=== PATIENT | female | born 1955 | race Caucasian/White ===

== ENCOUNTER 2017-08-26 12:37 | Day surgery (SDC) | payer OTHER, SELFPAY ==
[2017-08-26 13:43] VITALS: BP 132/74; PULSE 89; RESP 16; TEMP 36.5; O2SAT 95; BMI 33.7
--- NOTE | 2017-08-26 14:10 | RAD_ITS ---
PROCEDURE: Epidural block. DATE OF EXAMINATION: August 26, 2017. INDICATION: Female, 61 years old. Low back pain. FLUOROSCOPY TIME (if supplied): (0:15) minutes/seconds Intraoperative imaging was provided for L4-L5 epidural block. The spinal needle is seen along the posterior aspect of the L4-L5 disc. RAD/Spine 1 View Any Level IMPRESSION: Intraoperative imaging provided for L4-L5 epidural block. Electronically Signed: Gordon Syed MD at 15:53 EST Tel [phone], Service support ,
[2017-08-26] MEDS: Triamcinolone Acetonide 40 MG/ML Vial (15:15)
[2017-08-26 15:32] VITALS: BP 130/70; BP 132/74; PULSE 89; RESP 18; TEMP 36.6; O2SAT 96
--- NOTE | 2017-08-26 15:44 | PCM.DC ---
- Discharge Diagnoses Current Active Problems: Lumbar degenerative disc disease and b back pain Reason(s) for Visit for Discharge Instructions: Lumbar epidural steroid injection under fluroscopy You will use the following diet at home:: No restrictions Your food should be the consistency of: Regular Instructions: What Is Osteoarthritis? Allergies/Adverse Reactions: Allergies No Known Allergies Allergy (Verified 11/20/15 09:09) Medications to take at Discharge Aspirin [Adult Low Dose Aspirin EC] 81 mg PO DAILY 11/19/15 Atorvastatin Calcium [Lipitor] 40 mg PO QHS 11/19/15 Fenofibrate 40 mg PO DAILY 05/06/17 Methocarbamol [Robaxin] 500 mg PO QHS 05/06/17 L.acidoph,Paracasei, B.lactis [Probiotic] 1 each PO DAILY 08/26/17 Naproxen Sodium [Aleve] 220 mg PO Q12H PRN PRN 08/26/17 Primary Care Physician: Nura Herrera DO [Primary Care Provider] - Please Follow Up With: Jaxon Bettencourt MD
--- NOTE | 2017-08-26 15:47 | PCM.OP.BLANK ---
Problem List (1) Other intervertebral disc displacement, lumbar region Status: Acute (2) Intervertebral disc disorder with radiculopathy of lumbar region Status: Acute (3) Other intervertebral disc degeneration, lumbar region Status: Acute (4) Intervertebral disc stenosis of neural canal of lumbar region Status: Acute Operative Report Date of Procedure: 08/26/17 LUMBAR EPIDURAL STEROID INJECTION UNDER FLUOROSCOPY GUIDANCE at ACCESS AT L4-5 level Under sterile condition, patient in OR 1, placed on Prone position, pressure points were padded. After appropriate positioning , identified access points under fluoroscopy guidance to the L4-5 interspinous region with Oblique/ lateral and AP fluoroscopy guidance . Infiltration of skin with local anesthesia Lidocaine 1 % preservative free 5 ml at access point. Using 18 gauge toughy needle 3.5 inches in length to access to the posterior epidural space at the level indicated above. After confirmation of final placement , also using loss of resistance technique with PF Normal saline, negative aspiration of blood and CSF , injected 2 ml Contrast solution Iso 300, showed appropriate spread in the posterior epidural space, followed by injection of mixture of Kenalog 80 mg and PF normal saline and PF Lidocaine 0.25 % 5 ml total volume injected and showed spread in the posterior epidural space. Patient has tolerated the procedure well, intact neurological function after the procedure and discharged home in stable condition to follow up with plan at office visit as discussed in pre procedure visit, patient has expressed full understanding of the above .
== END 2017-08-26 15:34 | disposition home or self-care (01) ==
LOC: SDC 12:38 → ACINP 12:41 → AC 12:53
PROVIDERS: Family Provider Family Medicine; PCP Family Medicine; Visit Provider Anesthesiology
PROC: 3E0S3BZ Introduction of Anesthetic Agent into Epidural Space, Percutaneous Approach (ICD-10-PCS; CPT 62322; principal; 2017-08-26 14:05)
DX: M51.26 Other intervertebral disc displacement, lumbar region (principal); M51.16 Intervertebral disc disorders with radiculopathy, lumbar region; M51.36 Other intervertebral disc degeneration, lumbar region; M99.53 Intervertebral disc stenosis of neural canal of lumbar region; M50.320 Other cervical disc degeneration, mid-cervical region, unspecified level; M47.16 Other spondylosis with myelopathy, lumbar region; M48.061 Spinal stenosis, lumbar region without neurogenic claudication; Z87.891 Personal history of nicotine dependence; Z79.899 Other long term (current) drug therapy
CPT/HCPCS: 62323; 64483; 72020; J7120

== ENCOUNTER 2017-09-02 20:35 | Emergency (ER) | payer OTHER, SELFPAY ==
[2017-09-02 20:36] VITALS: TEMP 36.5; BMI 35.7
[2017-09-02 20:40] VITALS: BP 143/94; PULSE 94; RESP 16; O2SAT 99
--- NOTE | 2017-09-02 20:59 | EKG12_ITS ---
Test Reason : CP Blood Pressure : / mmHG Vent. Rate : 088 BPM Atrial Rate : 088 BPM P-R Int : 112 ms QRS Dur : 090 ms QT Int : 356 ms P-R-T Axes : 024 028 058 degrees QTc Int : 430 ms Normal sinus rhythm Nonspecific T wave abnormality Confirmed by MILAN MORALES, KENIA ([id number]), make up editor SONIA JOHNSON ([id number]) on 09/05/2017 1:10:10 PM Referred By: DYLON Confirmed By:KENIA YATES MD
--- NOTE | 2017-09-02 20:59 | RAD_ITS ---
STUDY: X-RAY CHEST REASON FOR EXAM: Female, 61 years old. Chest pain TECHNIQUE: Frontal view of the chest COMPARISON: None. FINDINGS: The lungs are clear. There are no pleural effusions. There is no pneumothorax. The heart is enlarged. The patient is status post sternotomy. The visualized osseous structures are within normal limits. RAD/Chest 1 View (Portable) IMPRESSION: Cardiomegaly. Clear lungs. Electronically Signed: Rey Ji, at 21:49 EST Tel , Service support ,
[2017-09-02 21:28] LABS: Absolute Lymphocyte Count 3.41 X10^3/ul (0.83-4.51); Absolute Neutrophil Count 9.8 X10^3/uL (2.0-7.7); Basophil# 0.02 X10^3/uL; Basophil% 0.1 % (0-1); Eosinophil# 0.22 X10^3/uL; Eosinophils% 1.5 % (0-5); Hematocrit 46.2 % (37-47); Hemoglobin 15.2 g/dl (12.0-15.0); Lymphocyte # 3.41 X10^3/ul (4.0); Mean Corp Hgb Conc 32.9 g/gl (32-36); Mean Platelet Vol. 9.6 fl (6.2-12.0); Monocyte% 8.8 % (0-10); Neutrophil # 9.77 X10^3/uL (2.7-7.7); Neutrophil % 65.9 % (47-70); POSITIVE COUNT NO; POSITIVE DIFFERENTIAL NO; POSITIVE MORPHOLOGY NO; Platelet Count 386 K/mm3 (150-450); RBC Distribution Width SD 47.6 fl (35.1-43.9); Red Blood Count 5.25 M/mm3 (4.2-5.4); White Blood Count 14.8 K/mm3 (4.4-11.0)
[2017-09-02 21:44] VITALS: BP 134/83; PULSE 80; RESP 17; O2SAT 95
[2017-09-02 22:32] VITALS: BP 153/95; PULSE 82; RESP 18
[2017-09-02] MEDS: 0.9% Normal Saline 1,000 ML 150 ML IV (22:34)
[2017-09-02 23:08] LABS: Anion Gap 9 (5-15); BUN 26 mg/dL (7-18); BUN/Creat Ratio 29.3 RATIO (10-20); Calcium,Total 9.1 mg/dL (8.5-10.1); Chloride 106 mmol/L (98-107); Creatinine, Serum 0.89 mg/dL (0.55-1.02); EST Glomerular Filtration Rate 68 mL/min (>60); Est Glom Filt Rate - Afr Amer 83 mL/min (>60); Estimated Creatinine Clearance 61.35 ml/min; Glucose 118 mg/dL (74-106); Potassium 4.1 mmol/L (3.5-5.1); Sodium Level 141 mmol/L (136-145)
[2017-09-02 23:47] VITALS: PULSE 85; RESP 18
--- NOTE | 2017-09-02 23:57 | ED.DCSUM_ITS ---
- ER Visit Summary Date of Service: 09/02/17 Chief Complaint: Chest pain History of Present Illness: The patient is a [address] Herrera and is seen Dr. Clifton in the distant past. 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 She has a history of three-vessel CABG in 2016. Patient reports he has chest pain again at 745 this evening while she was caring for an infant. States this was light activity. It is a sharp pain is 10 out of 10 at worst and 2 out of 10 currently. Was worsened by nothing including exertion, breathing, or movement. She describes it as substernal in location with radiation into her back and both shoulders. Was relieved by oxygen. It was unchanged by nitroglycerin. There was associated nausea, diaphoresis, and shortness of breath. Patient denies any chest pain or change in dyspnea exertion in the past month. Physical Examination: Vitals: Stable. Afebrile. General: Well-nourished and well-developed. Head: Normocephalic atraumatic. Neck: Supple, no lymphadenopathy. No JVD. Nontender. Cardiovascular: Regular rate and rhythm. No murmurs. Respiratory: No respiratory distress. Clear to auscultation bilaterally. Abdominal: Soft, nontender, nondistended, normal bowel sounds. No guarding, rebound, or peritoneal signs. Back: Nontender. Extremities: Nontender, no edema. Skin: Normal color, no rash. Neurologic: Alert and oriented ?3. Cranial nerves II through XII are intact. Normal strength and sensation. Psych: Normal affect. Test Results: EKG is sinus at [address] changes. Is unchanged from 2016. Initial troponin is negative. Chem-7 is more for BUN of 26 and glucose 118. CBC is marked for white count of 14.8 and hemoglobin of 15.2. Chest x-ray shows cardiomegaly and no acute disease. Emergency Department Course and Treatment: Patient was given aspirin by EMS. This was not repeated here. She rested comfortably. I had a prolonged discussion with her that with the symptoms that she has had a feel that she warrants admission to the hospital for repeat enzymes and further evaluation. She is refusing this. Did discuss with her that I no way can I safely say that this was not her heart that caused this episode of chest pain. She understands this and is still wants to leave and is capable of making this decision. Treatment Plan: Patient is instructed to return to the emergency department for any chest pain or concerns. Follow-up with Dr. Clifton as soon as possible. Follow-up Dr. Herrera within 1-2 days for another exam. Disposition: Left AGAINST MEDICAL ADVICE. Impression: 1. Chest pain. 2. Left AGAINST MEDICAL ADVICE. This note was generated with [employer] dictation software. It may contain incorrect words, spelling, and punctuation that were not noted in review of the chart prior to signing ED Disposition - Plan for ED Patient: Disposition: Home or Assisted Living Chief Complaint: Chest Pain Instructions: ED Chest Pain Atypical Unkn Cause Referrals: Nura Herrera DO [Primary Care Provider] - As soon as possible Gurjit Clifton MD [STAFF PHYSICIAN] - As soon as possible
[2017-09-03 00:03] VITALS: BP 143/93; BP 149/93; PULSE 84; RESP 18; O2SAT 100; O2SAT 99
== END 2017-09-03 00:04 | disposition home or self-care (01) ==
LOC: ED 21:10
PROVIDERS: Emergency Provider Emergency Medicine; Family Provider Family Medicine; PCP Family Medicine
DX: R07.9 Chest pain, unspecified (principal); I25.10 Atherosclerotic heart disease of native coronary artery without angina pectoris; E78.00 Pure hypercholesterolemia, unspecified; Z95.1 Presence of aortocoronary bypass graft; Z79.82 Long term (current) use of aspirin; Z79.899 Other long term (current) drug therapy; Z72.0 Tobacco use
CPT/HCPCS: 71045; 80048; 84484; 85025; 93005; 96360; 99285; J7030; A4216

== ENCOUNTER → 2017-09-13 09:12 | Outpatient (CLI) | payer OTHER, SELFPAY ==
[2017-09-13 12:30] LABS: Hemoglobin A1c 6.8 % (4.2-6.3)
[2017-09-13 12:31] LABS: Cholesterol 135 mg/dL (200); High Density Lipoprotein 48 mg/dL; Triglycerides 174 mg/dL; Very Low Density Lipoprotein 35 mg/dL (5-40)
== END ==
PROVIDERS: Family Provider Family Medicine; PCP Family Medicine; Visit Provider Family Medicine
DX: E78.5 Hyperlipidemia, unspecified (principal); R73.03 Prediabetes
CPT/HCPCS: 36415; 80061; 83036

== ENCOUNTER → 2017-10-11 06:25 | Outpatient (CLI) | payer OTHER, SELFPAY ==
--- NOTE | 2017-10-11 09:14 | STRESSREP ---
Stress Test Report Pharmacologic myocardial perfusion stress test. 61-year-old lady with a history of chest pain. Stress protocol: EKG demonstrates normal sinus rhythm with rate of 80 bpm normal intervals and noted resting blood pressure is 122/84 mmHg. 0.4 mg of regadenoson was infused per usual protocol followed by Intravenous saline flush injection. Continuous EKG monitoring was performed. At rest there were no ST or T-wave changes noted suggest abnormal flow reserve at peak infusion there were no ST or T-wave changes noted suggest abnormal flow reserve. The resting blood pressure is 122/84 with a final blood pressure 142/70 mmHg. Myocardial perfusion protocol: 14.7 mCi of technetium 99m sestamibi was injected at rest. 0.4 mg of regadenoson was infused per usual protocol. At peak infusion 44.4 mCi of technetium 99m sestamibi was injected. Stress images were obtained stress and rest images were reconstructed and compared in the short axis vertical long and horizontal long axis. Gated images were also obtained. Perfusion SPECT analysis. Review of the stress images demonstrate normal perfusion in all areas of the myocardium. The resting images similarly demonstrate normal perfusion in all areas of the myocardium. No ischemia is noted and no infarct is present. Gated SPECT analysis: The gated ejection fraction is noted to be 78%. Conclusion: Normal pharmacologic myocardial perfusion stress test.
--- NOTE | 2017-10-11 09:31 | STRESSREP_ITS ---
Stress Test Report Pharmacologic myocardial perfusion stress test. 61-year-old lady with a history of chest pain. Stress protocol: EKG demonstrates normal sinus rhythm with rate of 80 bpm normal intervals and noted resting blood pressure is 122/84 mmHg. 0.4 mg of regadenoson was infused per usual protocol followed by Intravenous saline flush injection. Continuous EKG monitoring was performed. At rest there were no ST or T-wave changes noted suggest abnormal flow reserve at peak infusion there were no ST or T-wave changes noted suggest abnormal flow reserve. The resting blood pressure is 122/ 84 with a final blood pressure 142/70 mmHg. Myocardial perfusion protocol: 14.7 mCi of technetium 99m sestamibi was injected at rest. 0.4 mg of regadenoson was infused per usual protocol. At peak infusion 44.4 mCi of technetium 99m sestamibi was injected. Stress images were obtained stress and rest images were reconstructed and compared in the short axis vertical long and horizontal long axis. Gated images were also obtained. Perfusion SPECT analysis. Review of the stress images demonstrate normal perfusion in all areas of the myocardium. The resting images similarly demonstrate normal perfusion in all areas of the myocardium. No ischemia is noted and no infarct is present. Gated SPECT analysis: The gated ejection fraction is noted to be 78%. Conclusion: Normal pharmacologic myocardial perfusion stress test.
== END ==
PROVIDERS: Family Provider Family Medicine; PCP Family Medicine; Visit Provider Family Medicine
DX: R07.9 Chest pain, unspecified (principal)
CPT/HCPCS: 78452; 93017; A9500; A4216; J2785

== ENCOUNTER 2017-11-22 10:30 | Outpatient (RCR) | payer OTHER, SELFPAY ==
--- NOTE | 2017-10-21 10:36 | HP.PTEVAL_ITS ---
Patient's Visit Information DEONTE DON is a 61 year old F referred to Physical Therapy by MD JIMMY Chambers with a diagnosis of LUMBAR DDD. Date of Evaluation: 10/21/17 Physical Therapist: Diane Olsen - Visit Plan Frequency: 2-3x /Week Duration: 4-6 Weeks Plan: AQUATIC THERAPY FOR POSTURE CORRECTION/STRENGTHENING, INSTRUCTION IN APPROPRIATE BODY MECHANICS AND ACTIVITY MODIFICATIONS. DLS STARTING WITH A NEUTRAL SPINE PROGRESSING ROM TOLERATED. MARIANGEL LE ROM, STRETCHING AND STRENGTHENING. HEP INSTRUCTION. PATIENT PLANS TO CONTINUE IN THE POOL AT THE [facility]. - Subjective Subjective: Diagnosis: LUMBAR DDD. Work/Leisure: [employer]. Disability: NO. Present symptoms: LOW BACK, LEFT THIGH, LEFT LEG AND LEFT FOOT. PATIENT DENIES MARIANGEL LE NUMBNESS OR TINGLING. Present since: CHRONIC LBP FOR MANY YEARS. LLE SX'S STARTED APPROXIMATELY ABOUT A YEAR AGO. Pain Scale: WORST 7/10, LEAST 0/10. Currently: 0/10. Commenced as a result of: NO APPARENT REASON. Symptoms at onset: LOW BACK. Worse: ITS RANDOM. Better: BATH, ALEVE, ICE, SITTING ON EX BALL. Disturbed sleep: YES. Previous history/Previous treatment: PT, PAIN MGMT, CHIROPRACTOR, 2 DELORIS'S X2 IN 2007, MAY 2017 DELORIS AND AGAIN AUG 26 2017 SHE HAD ANOTHER DELORIS BECAUSE LAST INJECTION DIDN'T TAKE. PAIN RELEIVERS DO NOT TOUCH IT. NO LOW BACK SURGERY. HAS NOT BEEN TO A SPINE SURGEON FOR LOW BACK. Coughing/sneezing/straining: POSITIVE. Gait: PATIENT REPORTS THAT WHEN SHE IS IN PAIN SHE HAS TO WALK SLOW AND LIMP ON THE LLE. NO AD'S. Difficulty initiating urinatin: NO. Accidents : UNREMARKABLE. Unexplained weight loss: NO. Imaging: LUMBAR MRI 2017 - Moderately severe multilevel degenerative disc disease and degenerative arthropathy of the lumbar spine with acquired canal stenosis, neural. foraminal narrowing and potential nerve impingement, as described. PMH: OPEN HEART SURGERY OCTOBER 27 2015. NO PACEMAKER. NO CANCER. NO STROKE. RECENT NORMAL STRESS TEST. POSSIBLE NEW ONSET DM. HTN, HIGH CHOLESTEROL. HISTORY OF NECK AND MARIANGEL UE SX'S. *LARGE UNREPAIRED ABDOMINAL HERNIA* - Objective Sitting Posture: POOR. Standing Posture: POOR. Lordosis: REDUCED. Lateral shift: NO. Relevant shift: N/A. Active Correction of posture: WORSE. Other Observations: INDEP GAIT INTO PT WITHOUT AD WITH DECREASED CADANCE BUT NO LIMPING AT THIS TIME. INDEP TRANSFER SIT TO STAND WITHOUT UE ASSIST. Motor deficit: MMT RIGHT LE 5/5, LEFT HIP 4/5, KNEE/ANKLE 5/5. Sensory deficit: HYPERSENSATIVITY OF LEFT MEDIAL THIGH AND LEG SINCE THEY HAD TO GO BACK INTO THE LLE AFTER HEART SURGERY. ROM deficit: TIGHT MARIANGEL LE HS'S AND GASTROC SOLEUS COMPLEX'S. Lumbar mvmt loss: flex - NIL. ext - ADRYAN. R SG - MOD. L SG - MOD. Core strength: POOR. Palpation: TENDERNESS LEFT BUTTOCK REGION. - Goals Goal 1:: DECREASE C/O BACK AND LLE SX'S. 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/WORK AND SLEEP FUNCTION Goal Time Frame: 4-6 Weeks Goal 3:: INSTRUCT IN PROPHYLAXIS Goal Time Frame: 4-6 Weeks - Rehabilitation Potential Rehabilitation Potential: Fair - Anticipated Interventions Patient/Client Instruction: Educate patient on: Condition, Plan of Care, Risk Factors, Benefits of Fitness Program For the Purpose of:: To improve self management Therapeutic Exercise to Include: Strength training, Body mechanics, Postural training, Flexibilty training, In an aquatic setting, Active ROM, Dynamic Lumbar Stabilization, Scapular Strength/Stabilization For the Purpose of:: To decrease pain, To decrease swelling/inflammation, To increase ROM, To improve ability of physical actions for home/community/work/ leisure Thank you for the opportunity to evaluate your patient. For Medicare and Medicare HMO plans, please review the plan of care and approve it. It will need to be FAXED BACK to us at [phone] for Medicare purposes. Please let me know if there are questions or concerns regarding this plan of care. Physician Signature: Date:
--- NOTE | 2017-11-22 11:19 | HP.PTDCSUM ---
HP - PT D/C Summary It has been my pleasure to treat DEONTE DON under orders from Jaxon Bettencourt MD, for the diagnosis of LUMBAR DDD for a total of 10 visit(s). Discharge Date: Please see the following information for a summary of their discharge status. 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 PATIENT REPORTS SHE HAS BEEN PAINFREE SINCE THE LAST VISIT. - Pain lower back Pain Intensity (Out of 10): N/A - Overall Improvement % Improvement: 99 - Objective Objective/Function: LUMBAR OSWESTRY SCORE HAS IMPROVED FROM 17 TO 2. Motor deficit: MMT - MARIANGEL LE'S 5/5. ROM DEFICIT: WFL. Lumbar mvmt loss: flex - NIL. ext - MOD. R SG - MOD. L SG - MIN. Core strength: POOR. Palpation: MILD TENDERNESS RIGHT BUTTOCK ONLY. OTHERWISE PATIENT DENIED PAIN WITH ALL TESTING TODAY. SHE DEMONSTRATED A GOOD UNDERSTANDING OF ALL INSTRUCTIONS AFTER GIVEN. - Goals Goal 1:: DECREASE C/O BACK AND LLE SX'S. Goal Progress: Goal Met Goal 2:: IMPROVE SITTING, STANDING, WALKING, DIRECTOR ZONE/WORK AND SLEEP FUNCTION Goal Progress: Goal Met Goal 3:: INSTRUCT IN PROPHYLAXIS Goal Progress: Goal Met - Plan Plan: D/C TO INDEP EX. PATIENT IS AGREEABLE. - D/C Information If there are questions or concerns regarding this patient's physical therapy, please feel free to call me at [phone]. Thank you for the referral of this patient. Sincerely, Diane Olsen
== END 2017-11-22 19:00 | disposition home or self-care (01) ==
LOC: PT 10:30
PROVIDERS: Family Provider Family Medicine; PCP Family Medicine; Visit Provider Anesthesiology
DX: M51.36 Other intervertebral disc degeneration, lumbar region (principal); M51.26 Other intervertebral disc displacement, lumbar region
CPT/HCPCS: 97113; 97162; 97530

== ENCOUNTER 2017-11-24 13:10 | Emergency (ER) | payer OTHER, SELFPAY ==
[2017-11-24 13:11] VITALS: BP 151/93; PULSE 109; RESP 14; TEMP 36.1; O2SAT 94; BMI 34.2
--- NOTE | 2017-11-24 13:35 | RAD_ITS ---
STUDY: X-RAY - RIGHT HUMERUS REASON FOR EXAM: Female, 62 years old. Penetrating wound. Pt. stated that she fell two months ago onto a glass cabinet, since then she has had what looks like a boil on her mid upper arm, painful to touch, ? Foreign body, glass TECHNIQUE: 2 view(s) of the humerus. COMPARISON: None. FINDINGS: Normal visualized humerus. There is no demonstrated fracture or osseous destructive process. There is no demonstrated soft tissue abnormality. RAD/Humerus min 2 Views IMPRESSION: Normal x-ray examination of the humerus. Electronically Signed: Lolis Clements MD at 13:58 EDT Tel , Service support ,
--- NOTE | 2017-11-24 14:47 | ED.VISSUMM ---
- ER Visit Summary Date of Service: 11/24/17 Chief Complaint: Right arm pain History of Present Illness: The patient is a [address] Herrera. She reports that she noticed a swollen area on the back of her right arm that began a month ago. She believes that this was from falling into a piece of glass. She reports she has sharp pain is 510 she touches it and she is pain-free at rest. She denies any numbness or weakness distally. She reports that her daughter popped it last month, but there was no purulent drainage. Physical Examination: Vitals: Stable. Afebrile. General: Well-nourished and well-developed. Head: Normocephalic atraumatic. Neck: Supple, no lymphadenopathy. No JVD. Nontender. Cardiovascular: Regular rate and rhythm. No murmurs. Respiratory: No respiratory distress. Clear to auscultation bilaterally. Abdominal: Soft, nontender, nondistended, normal bowel sounds. No guarding, rebound, or peritoneal signs. Back: Nontender. Extremities: Pea-sized raised, erythematous area to the posterior surface of her right arm. Minimal surrounding erythema. Skin: Normal color, no rash. Neurologic: Alert and oriented ?3. Cranial nerves II through XII are intact. Normal strength and sensation. Psych: Normal affect. Test Results: X-ray shows no foreign body. Emergency Department Course and Treatment: Had a prolonged discussion with the patient that I do not think that this is an abscess. It could potentially be a sebaceous cyst. I have suggested that she follow-up with dermatology to have this drained. She is adamant that she does not want to do this and that her insurance will not cover this. She is also adamant that she wants it drained in the emergency department. An I&D was performed and there was no purulent drainage. Treatment Plan: Patient will be discharged instructions to follow-up with a senior master scheduler in 1 week for another exam. Follow-up Dr. Herrera as needed. Should be placed on Bactroban ointment. Disposition: To home in improved and stable condition. Impression: 1. Sebaceous cyst right arm. 2. Incision and drainage. Procedure Note: Abscess was cleansed with chlorhexidine soap. Anesthetized with 1% lidocaine without epinephrine. An incision was made with an 11 scalpel blade. There was no purulent drainage. No caseous material. It did appear to have a shallow consistent with a sebaceous cyst. The wound was copiously irrigated with normal saline. It was loosely packed with iodoform gauze. The patient tolerated it well. This note was generated with [employer] dictation software. It may contain incorrect words, spelling, and punctuation that were not noted in review of the chart prior to signing ED Disposition - Plan for ED Patient: Disposition: Home or Assisted Living Chief Complaint: Foreign Body Instructions: ED Cyst Sebaceous Prescriptions: Mupirocin Calcium [Bactroban] 30 gm TP 4X/DAY #1 tube Referrals: Parish Ledezma MD [STAFF PHYSICIAN] - 1 Week if not improving Nura Herrera DO [Primary Care Provider] - Keep Latasha appointment
[2017-11-24 15:42] VITALS: BP 126/85
== END 2017-11-24 15:42 | disposition home or self-care (01) ==
PROVIDERS: Emergency Provider Emergency Medicine; Family Provider Family Medicine; PCP Family Medicine
DX: L72.3 Sebaceous cyst (principal); I25.10 Atherosclerotic heart disease of native coronary artery without angina pectoris; I10 Essential (primary) hypertension; E11.9 Type 2 diabetes mellitus without complications; Z95.1 Presence of aortocoronary bypass graft; Z79.82 Long term (current) use of aspirin; Z79.84 Long term (current) use of oral hypoglycemic drugs; Z79.899 Other long term (current) drug therapy; Z72.0 Tobacco use
CPT/HCPCS: 10060; 73060; 99282

== ENCOUNTER → 2018-05-29 08:29 | Outpatient (CLI) | payer OTHER, SELFPAY ==
[2018-05-29 10:36] LABS: Absolute Lymphocyte Count 2.66 X10^3/ul (0.83-4.51); Absolute Neutrophil Count 4.3 X10^3/uL (2.0-7.7); Basophil# 0.02 X10^3/uL; Basophil% 0.3 % (0-1); Eosinophil# 0.29 X10^3/uL; Eosinophils% 3.6 % (0-5); Hematocrit 45.5 % (37-47); Lymphocyte # 2.66 X10^3/ul (4.0); Lymphocyte % 33.4 % (19-41); Mean Corpuscular Hgb 28.7 pg (27.0-32.0); Mean Platelet Vol. 10.6 fl (6.2-12.0); Monocyte% 8.8 % (0-10); Neutrophil # 4.28 X10^3/uL (2.7-7.7); Neutrophil % 53.8 % (47-70); Platelet Count 394 K/mm3 (150-450); RBC Distribution Width CV 15.5 % (11.6-14.6); RBC Distribution Width SD 49.6 fl (35.1-43.9); Red Blood Count 5.23 M/mm3 (4.2-5.4)
[2018-05-29 10:47] LABS: ALB/GLOB Ratio 1.1 RATIO (0.9-2.4); AST(SGOT) 19 U/L (15-37); Alanine Aminotransfer ALT/SGPT 30 U/L (13-56); Albumin, Serum 3.6 g/dL (3.2-5.0); Alkaline Phosphatase 84 U/L (45-117); Anion Gap 8 (5-15); BUN 15 mg/dL (7-18); BUN/Creat Ratio 17.9 RATIO (10-20); Calcium,Total 8.2 mg/dL (8.5-10.1); Chloride 111 mmol/L (98-107); Cholesterol 183 mg/dL (200); Creatinine, Serum 0.84 mg/dL (0.55-1.02); EST Glomerular Filtration Rate 73 mL/min (>60); Est Glom Filt Rate - Afr Amer 88 mL/min (>60); Globulin 3.3 g/dL (2.2-4.2); Glucose 109 mg/dL (74-106); High Density Lipoprotein 29 mg/dL; Potassium 3.9 mmol/L (3.5-5.1); Protein, Total 6.9 g/dL (6.4-8.2); Sodium Level 142 mmol/L (136-145); Triglycerides 512 mg/dL
[2018-05-29 10:48] LABS: POSITIVE COUNT NO; POSITIVE DIFFERENTIAL NO; POSITIVE MORPHOLOGY NO
[2018-05-29 10:50] LABS: Hemoglobin A1c 6.4 % (4.2-6.3)
[2018-05-30 12:30] LABS: Microalbumin,Random Urine 11.9 mg/L (NO RANGE EST.); Microalbumin:Creatinine Ratio 10.3 mg/g CRE (<30 mg/g CRE)
== END ==
PROVIDERS: Family Provider Family Medicine; PCP Family Medicine; Visit Provider Family Medicine
DX: E11.9 Type 2 diabetes mellitus without complications (principal); E78.5 Hyperlipidemia, unspecified; I10 Essential (primary) hypertension
CPT/HCPCS: 36415; 80053; 80061; 82043; 82570; 83036; 85025

== ENCOUNTER → 2018-06-19 10:37 | Outpatient (CLI) | payer OTHER, SELFPAY ==
[2018-06-19 10:37] VITALS: BMI 33.7
[2018-06-19 12:29] LABS: Color, Urine Yellow (Yellow); Glucose, Dipstick 100 mg/dl (Normal); Ketone-Dipstick Negative (Negative); Leukocyte Esterase-Dipstick Negative /ul (Negative); Nitrite-Dipstick Negative (Negative); Occult Blood-Urine 25 /ul (Negative); Protein-Dipstick Negative (Negative); Urine Bilirubin Dipstick Negative (Negative); Urine Clarity Cloudy (Clear); Urine Urobilinogen Normal (Normal)
== END ==
PROVIDERS: Family Provider Family Medicine; PCP Family Medicine; Visit Provider Family Medicine
DX: R82.90 Unspecified abnormal findings in urine (principal)
CPT/HCPCS: 81002

== ENCOUNTER → 2018-11-10 09:58 | Outpatient (CLI) | payer OTHER, SELFPAY ==
[2018-06-19 10:37] VITALS: BMI 33.7
[2018-11-10 13:09] LABS: Cholesterol 161 mg/dL (200); High Density Lipoprotein 33 mg/dL; Triglycerides 369 mg/dL; Very Low Density Lipoprotein 74 mg/dL (5-40)
[2018-11-10 13:11] LABS: Hemoglobin A1c 6.8 % (4.2-6.3)
== END ==
PROVIDERS: Family Provider Family Medicine; PCP Family Medicine; Visit Provider Family Medicine
DX: E11.9 Type 2 diabetes mellitus without complications (principal); E78.5 Hyperlipidemia, unspecified
CPT/HCPCS: 36415; 80061; 83036

== ENCOUNTER 2018-12-26 09:15 | Day surgery (SDC) | payer OTHER, SELFPAY ==
--- NOTE | 2018-12-15 04:15 | HP_ITS ---
Intake Vital Signs 12/15/18 Body Mass Index (BMI) 33.7 12/15/18 Height 5 ft 6 in 12/15/18 Weight: 212 lb 12/15/18 Body Mass Index (BMI) 34.2 12/15/18 Blood Pressure 146/81 H 12/15/18 Blood Pressure Location Rt brachial 12/15/18 Blood Pressure Position Sitting 12/15/18 Respiratory Rate 14 12/15/18 Pulse Rate 98 12/15/18 Pulse Source Monitor 12/15/18 Temperature 98.2 F 12/15/18 Temperature Source Oral 12/15/18 Pulse Ox 96 12/15/18 Oxygen Delivery Method room air Intake Visit Reasons: cscope, BRBPR, hx of CABG, afib Weighbridge Operator Required: No Is patient in pain?: No Allergies lisinopril Allergy (Unknown, Verified 12/15/18 15:26) Unknown prednisone Adverse Reaction (Unknown, Verified 12/15/18 15:26) Unknown Medications Aspirin [Adult Low Dose Aspirin EC] 81 mg PO DAILY 11/19/15 [History Confirmed 12/15/18] Atorvastatin Calcium [Lipitor] 40 mg PO QHS 11/19/15 [History Confirmed 12/15/18] Fenofibrate 160 mg PO DAILY 05/06/17 [History Confirmed 12/15/18] L.acidoph,Paracasei, B.lactis [Probiotic] 1 ea PO DAILY 08/26/17 [History Confirmed 12/15/18] Diphenhydramine HCl [Sleep Aid] 25 mg PO QHS 11/24/17 [History Confirmed 12/15/18] Metformin HCl 500 mg PO BID 11/24/17 [History Confirmed 12/15/18] Naproxen [Naprosyn] 500 mg PO DAILY PRN PRN 11/24/17 [History Confirmed 12/15/18] coenzyme Q10 75 mg capsule 75 mg PO DAILY 12/15/18 [History Confirmed 12/15/18] losartan 50 mg tablet 50 mg PO DAILY 12/15/18 [History Confirmed 12/15/18] PFSH Medical History Hemorrhoid (Acute) Acid reflux (Acute) Diarrhea (Acute) Heart disease (Acute) Arthritis (Acute) Diabetes (Acute) Fatigue (Acute) Segmental and somatic dysfunction of cervical region (Acute) Degenerative disc disease, cervical (Chronic) Segmental and somatic dysfunction of thoracic region (Acute) Hypertension (Chronic) Obesity (BMI 30.0-34.9) (Chronic) Tobacco abuse (Chronic) COPD (chronic obstructive pulmonary disease) (Suspected) Other intervertebral disc displacement, lumbar region (Acute) Intervertebral disc disorder with radiculopathy of lumbar region (Acute) Other intervertebral disc degeneration, lumbar region (Acute) Intervertebral disc stenosis of neural canal of lumbar region (Acute) Surgical History Hx of colonoscopy (Acute) History of bladder suspension procedure (Acute) Hx of appendectomy (Acute) Hx of heart bypass surgery (Acute) Hx of tubal ligation (Acute) Hx of hysterectomy (Acute) Hx of cholecystectomy (Acute) Hx of tonsillectomy (Acute) Family History Mother Hypertension Heart disease COPD (chronic obstructive pulmonary disease) CAD (coronary artery disease) Social History Smoking Status: Current every day smoker alcohol intake: never substance use type: does not use caffeine: Yes what type of physical activity do you participate in: none HPI HPI HPI: DEONTE DON, is a 63 F who presents to the office today for HPI HPI Surgical H&P: Yes HPI: DEONTE DON, is a 63 F who presents to the office today for surgical consultation regarding a screening colonoscopy. The patient states that she had a previous colonoscopy in 1995 performed by the local jewelry sales representative and she states the experience was not good. She did not ever return for further treatment. She is not sure whether she had polyps at that time. She currently denies bright red blood per rectum or melena. No abdominal pain. She denies any family history of colon cancer or colon polyps. She does have cardiac disease and has had cardiac bypass grafting x3 at [facility] 2016. This was complicated by a postoperative pulmonary embolus and a left thigh great saphenous vein harvest site wound infection. Those have subsequently resolved. She does not require any ongoing anticoagulation. Her previous abdominal surgery includes a previous appendectomy and previous hysterectomy and previous cholecystectomy. It is of note that the patient continues to smoke cigarettes. She is aware that this is not recommended. ROS General General: Yes fatigue; no weight change, appetite, colon cancer, breast cancer or weakness HEENT HEENT: No difficulty swallowing, eye injury, eye surgery, swollen glands or hoarseness Endo Endocrine: Yes diabetes mellitus; no thyroid disease, thyroid cancer, Hair loss, heat intolerance or cold intolerance Skin Skin: No rash or changing moles Musc Musculoskeletal: Yes back problems and arthritis; no rheumatoid arthritis, gout or joint pain Cardio Cardiovascular: Yes heart disease and high blood pressure; no murmur, pacemaker, atrial fibrillation, heart attack, heart stent, palpitations, shortness of breat with exertion or chest pain Psych Psychiatric: No depression, anxiety or hearing voices Resp Respiratory: No shortness of breath, No sleep apnea, Yes cough, Yes COPD, No asthma, No emphysema, No wheezing Gastro Gastrointestinal: No abdominal pain, No nausea or vomiting, Yes diarrhea, No constipation, No blood in stool, Yes acid reflux, Yes hemorrhoids, No ulcers, No gallbladder problem, No black,tarry stools Chilo Hematologic: Yes blood thinners, No blood disorders, No bleeding, No anemia, No blood clots Neuro Neurologic: No system reviewed and no additional complaints, except as docu, No as per HPI, No abnormal walking, No abnormal hearing, No abnormal movements, No abnormal speech, No behavioral changes, No burning sensations, No confusion, No seizure-like activity, No unsteadiness, No dizziness, No localized weakness, No frequent falls, No headache(s), No lack of coordination, No loss of vision, No memory loss, No numbness, No other visual disturbances, No radiating pain, No restless legs, No sensory deficit, No fainting, No tingling, No tremor(s), No weakness, No other Exam Const General: cooperative, healthy appearing, comfortable, no acute distress Nutritional Appearance: overweight Orientation: alert, awake [facility] Head: normal to inspection Chest Chest palpation & inspection: normal inspection of the chest Resp Effort & Inspection: normal respiratory effort Auscultation: clear to auscultation bilaterally Cardio Rate: regular rate Rhythm: regular rhythm Heart Sounds: no murmurs GI Palpation: soft, no hepatosplenomegaly Auscultation: normal bowel sounds Musc Cervical Spine: normal cervical lordosis Neuro Cognition: normal cognition Extrem General: no calf tenderness bilaterally Psych Affect: normal affect Assessment & Plan Problems 1. Screening for intestinal cancer Z12.10 Plan I recommended the patient a screening colonoscopy with possible biopsy or polypectomy as indicated. She is aware of the technique, benefit, risks, alternatives. She has had an opting to ask and have questions answered. Her only current anticoagulation is low-dose aspirin which may be continued. She does not currently have any cardiac symptoms. She did have coronary bypass surgery in 2016. We will utilize monitored anesthesia care. As noted above her previous experience was not good. We will see if we can provide a better outcome. I very much appreciate the kind opportunity of assisting with her surgical care CC: Dr. Nura Gramajo M.D., F.A.C.S. Plan Detail Goals Decrease pain and spasm Barriers DDD, cspine Caring for baby Coding Level of Care Code Off vis,new,level 3 Diagnoses Screening for intestinal cancer Z12.10 12/15/18 1615 <Electronically signed by Jer Gramajo MD> Date Jer Gramajo MD I have re-examined the patient. There are no clinical changes since date of exam.
[2018-12-15 15:27] VITALS: BMI 33.7
[2018-12-26] VITALS (7 sets, daily range): BP systolic 104–136; BP diastolic 56–93; PULSE 76–97; RESP 16–18; TEMP 36.1–36.7; O2SAT 93–97; BMI 34.2
--- NOTE | 2018-12-26 10:30 | COLBX_PTH ---
PATIENT: DEONTE DON LOC: EN U#:[id number] AGE/SX: 63/F ROOM: RE12/26/[address]: Dr. Jer Gramajo MD : 1955 BED: DIS: 12/26/2018 SPEC #: [id number] RECD: 12/26/18 13:29 STATUS: ERNESTO JOSIE #: [id number] ROSARIO: 12/26/18 10:[address]: Jer Gramajo DEPT: SURGICAL PATHOLOGY RECD BY: Toñito Casillas ENTERED: 12/26/18 13:51 SP TYPE: COLON BX OTHR DR: Dr. Nura Herrera DO Tissues: Cecum, NOS Procedures: Surgery Specimen Level IV HEADER OPERATION: Colonoscopy (MAC) PRE-OP DIAGNOSIS: Screening TISSUE SUBMITTED: Ileocecal valve biopsy MICROSCOPIC DIAGNOSIS Ileocecal valve, biopsy: Focal acute colitis. See comment. AM:graham 12/27/18 COMMENT Rare cryptitis is noted. Clinical correlation is suggested. MICROSCOPIC DESCRIPTION Slides are reviewed. GROSS DESCRIPTION Received in fixative is one container labeled with the patient's name and designated ileocecal valve ulcer biopsy. The specimen consists of multiple irregular fragments of light betancourt soft tissue that in aggregate measure 0.5 x 0.3 x 0.1 cm. The specimen is totally submitted in one cassette. / AM:graham 12/26/18 TC:2 CPT: 50921
--- NOTE | 2018-12-26 11:48 | OP.ENDO_ITS ---
12/26/2018 Nura Herrera [address] [facility] [place] [address] Re : Colonoscopy procedure for Laurezachary Luz Dear Dr. Herrera This procedure was performed on Wednesday, December 26, 2018. My impressions and recommendations are as follows: Impressions : - Hemorrhoids found on perianal exam. - Diverticulosis in the sigmoid colon and in the descending colon. - Mucosal ulceration of the ileocecal valve. Biopsied. - The examination was otherwise normal. Recommendations : - Discharge patient to home. - Resume previous diet. - No aspirin, ibuprofen, naproxen, or other non-steroidal anti-inflammatory drugs for 2 weeks after biopsy while awaiting pathology. May be related to naproxen. - Repeat colonoscopy in 10 years for screening purposes. - Telephone my office for pathology results in 1 week. My findings are described in the full procedure note, which is enclosed. If I can be of further assistance, please feel free to contact me at Doctor phone number(s): Work: . Sincerely, Jer Gramajo MD 12/26/2018 11:47:50 AM This report has been signed electronically.
== END 2018-12-26 12:38 | disposition home or self-care (01) ==
LOC: EN 09:16 → AC 09:17
PROVIDERS: Family Provider Family Medicine; PCP Family Medicine; Referring Provider Surgery; Visit Provider Surgery
PROC: 0DJD8ZZ Inspection of Lower Intestinal Tract, Via Natural or Artificial Opening Endoscopic (ICD-10-PCS; CPT 45378; principal; 2018-12-26 10:25)
DX: Z12.11 Encounter for screening for malignant neoplasm of colon (principal); K52.9 Noninfective gastroenteritis and colitis, unspecified; K64.9 Unspecified hemorrhoids; K57.30 Diverticulosis of large intestine without perforation or abscess without bleeding; E78.00 Pure hypercholesterolemia, unspecified; I25.10 Atherosclerotic heart disease of native coronary artery without angina pectoris; I10 Essential (primary) hypertension; E11.9 Type 2 diabetes mellitus without complications; F17.210 Nicotine dependence, cigarettes, uncomplicated; E66.9 Obesity, unspecified; Z68.34 Body mass index [BMI] 34.0-34.9, adult; Z95.1 Presence of aortocoronary bypass graft; Z79.84 Long term (current) use of oral hypoglycemic drugs; Z79.899 Other long term (current) drug therapy; Z79.82 Long term (current) use of aspirin
CPT/HCPCS: 45380; 88305; J7120

== ENCOUNTER 2019-02-23 20:14 | Emergency (ER) | payer OTHER, SELFPAY ==
[2018-12-26 09:29] VITALS: BMI 34.2
[2019-02-23 20:18] VITALS: BP 158/125; PULSE 95; RESP 14; TEMP 37; O2SAT 95; BMI 35.5
--- NOTE | 2019-02-23 20:32 | EKG12_ITS ---
Test Reason : CP Blood Pressure : / mmHG Vent. Rate : 093 BPM Atrial Rate : 093 BPM P-R Int : 130 ms QRS Dur : 082 ms QT Int : 366 ms P-R-T Axes : 033 053 058 degrees QTc Int : 455 ms Normal sinus rhythm Normal ECG Confirmed by MILAN MORALES, KENIA ([id number]), book or script editor SONIA JOHNSON ([id number]) on 02/26/2019 11:47:31 AM Referred By: Confirmed By:KENIA YATES MD
[2019-02-23] MEDS: Aspirin 81 MG TAB.CHEW 324 MG PO (20:44)
[2019-02-23 20:46] VITALS: BP 136/70; PULSE 88
--- NOTE | 2019-02-23 20:47 | RAD_ITS ---
STUDY: X-RAY CHEST REASON FOR EXAM: Female, 63 years old. Chest pain. TECHNIQUE: Single AP portable view of the chest. COMPARISON: September 02. FINDINGS: The lungs are clear and expanded. There is no demonstrated pleural abnormality. Sternal cerclage wires are present from a prior sternotomy. The heart is normal in size. Normal mediastinum and hector. Normal visualized pulmonary arteries. Normal visualized aortic arch and descending thoracic aorta. The thoracic spine is obscured by the mediastinum. Normal visualized ribs, clavicles, and shoulders. There is no demonstrated abnormality of the visualized soft tissue structures of the upper abdomen. RAD/Chest 1 View (Portable) IMPRESSION: No acute cardiopulmonary disease or interval change. Electronically Signed: Rayo Cosby DO at 21:09 EDT Tel [phone], Service support ,
[2019-02-23 21:07] LABS: Absolute Neutrophil Count 4.2 X10^3/uL (2.0-7.7); Basophil# 0.04 X10^3/uL; Basophil% 0.5 % (0-1); Eosinophil# 0.19 X10^3/uL; Eosinophils% 2.5 % (0-5); Hematocrit 44.9 % (37-47); Hemoglobin 14.8 g/dL (12.0-15.0); Lymphocyte % 32.3 % (19-41); Mean Corpuscular Hgb 28.7 pg (27.0-32.0); Mean Corpuscular Volume 87.2 fL (81-99); Mean Platelet Vol. 9.8 fl (6.2-12.0); Monocyte# 0.76 X10^3/uL; Monocyte% 9.8 % (0-10); NRBC Flagged by Analyzer 0 % (0-5); Neutrophil # 4.21 X10^3/uL (2.7-7.7); Neutrophil % 54.5 % (47-70); Platelet Count 379 K/mm3 (150-450); RBC Distribution Width CV 15.1 % (11.6-14.6); RBC Distribution Width SD 48.3 fl (35.1-43.9); Red Blood Count 5.15 M/mm3 (4.2-5.4); White Blood Count 7.7 K/mm3 (4.4-11.0)
[2019-02-23 21:29] LABS: Anion Gap 9 (5-15); BUN 17 mg/dL (7-18); BUN/Creat Ratio 20.9 RATIO (10-20); Calcium,Total 8.5 mg/dL (8.5-10.1); Chloride 108 mmol/L (98-107); Creatinine, Serum 0.81 mg/dL (0.55-1.02); EST Glomerular Filtration Rate 75 mL/min (>60); Est Glom Filt Rate - Afr Amer 91 mL/min (>60); Estimated Creatinine Clearance 65.69 ml/min; Glucose 158 mg/dL (74-106); Potassium 4.3 mmol/L (3.5-5.1); Sodium Level 143 mmol/L (136-145)
--- NOTE | 2019-02-23 21:43 | ED.VISSUMM ---
- ER Visit Summary Date of Service: 02/23/19 Chief Complaint: Chest pain History of Present Illness: The patient is a 63 F presenting with chest pain. She states this started around 7:30 PM. She states for approximately an hour she had a severe squeezing sensation in her chest. It was not worsened or relieved by anything. She had associated nausea and shortness of breath. She states she had similar symptoms before having a CABG in 2016. She has history of hypertension, diabetes, hypercholesterolemia, smoking. She denies other complaints. Physical Examination: Vitals are stable. Patient is afebrile. Alert no acute distress. HEENT exam is unremarkable. Neck is supple. Lungs are clear and equal bilaterally. Heart is regular rate and rhythm. Abdomen is soft nontender nondistended. Extremities are unremarkable. Skin is warm and dry. No focal neurologic deficit. Remainder of exam is unremarkable. Emergency Department Course and Treatment: EKG is sinus rate of 93 with no acute ischemic changes. Chest x-ray shows no acute process. CBC, chemistries unremarkable other than glucose 158. Troponin is negative. Patient was given aspirin on arrival. She is chest pain-free on reevaluation. Patient declines admission to the hospital or further testing. She is advised risks of signing out including CA and . She understands and signs out AGAINST MEDICAL ADVICE. She is advised to return to the ED if she has any worsening complaints. Disposition: AGAINST MEDICAL ADVICE Impression: Chest pain This note was generated with [employer] dictation software. It may contain incorrect words, spelling, and punctuation that were not noted in review of the chart prior to signing ED Disposition - Plan for ED Patient: Referrals: Nura Herrera DO [Primary Care Provider] -
[2019-02-23 21:49] VITALS: BP 125/80; PULSE 91
--- NOTE | 2019-02-23 22:31 | ED.DEP ---
ED Disposition - Plan for ED Patient: Instructions: CHEST PAIN, Uncertain Cause Referrals: Nura Herrera DO [Primary Care Provider] -
== END 2019-02-23 22:36 | disposition left against medical advice (07) ==
LOC: ED 21:16
PROVIDERS: Emergency Provider Emergency Medicine; Family Provider Family Medicine; PCP Family Medicine
DX: R07.9 Chest pain, unspecified (principal); Z53.21 Procedure and treatment not carried out due to patient leaving prior to being seen by health care provider; I25.10 Atherosclerotic heart disease of native coronary artery without angina pectoris; I10 Essential (primary) hypertension; E11.9 Type 2 diabetes mellitus without complications; E78.00 Pure hypercholesterolemia, unspecified; F17.200 Nicotine dependence, unspecified, uncomplicated; Z95.1 Presence of aortocoronary bypass graft; Z79.82 Long term (current) use of aspirin; Z79.84 Long term (current) use of oral hypoglycemic drugs; Z79.899 Other long term (current) drug therapy
CPT/HCPCS: 71045; 80048; 84484; 85025; 93005; 99285

== ENCOUNTER → 2019-05-24 09:30 | Outpatient (CLI) | payer OTHER, SELFPAY ==
[2018-06-19 10:37] VITALS: BMI 33.7
[2019-05-24 12:17] LABS: Absolute Lymphocyte Count 2.76 X10^3/uL (0.83-4.51); Absolute Neutrophil Count 4.2 X10^3/uL (2.0-7.7); Basophil# 0.05 X10^3/uL; Basophil% 0.6 % (0-1); Eosinophil# 0.21 X10^3/uL; Eosinophils% 2.7 % (0-5); Hematocrit 45.5 % (37-47); Hemoglobin 14.8 g/dL (12.0-15.0); Lymphocyte # 2.76 X10^3/ul (4.0); Lymphocyte % 35.1 % (19-41); Mean Corp Hgb Conc 32.5 g/dL (32-36); Mean Corpuscular Hgb 28.1 pg (27.0-32.0); Mean Corpuscular Volume 86.5 fL (81-99); Mean Platelet Vol. 10.4 fl (6.2-12.0); Monocyte# 0.57 X10^3/uL; Monocyte% 7.3 % (0-10); NRBC Flagged by Analyzer 0 % (0-5); Neutrophil # 4.22 X10^3/uL (2.7-7.7); Neutrophil % 53.7 % (47-70); Platelet Count 382 K/mm3 (150-450); RBC Distribution Width CV 14.8 % (11.6-14.6); RBC Distribution Width SD 47.2 fl (35.1-43.9); Red Blood Count 5.26 M/mm3 (4.2-5.4); White Blood Count 7.9 K/mm3 (4.4-11.0)
[2019-05-24 12:30] LABS: Hemoglobin A1c 6.4 % (4.2-6.3)
[2019-05-24 12:39] LABS: ALB/GLOB Ratio 1.1 RATIO (0.9-2.4); AST(SGOT) 15 U/L (15-37); Alanine Aminotransfer ALT/SGPT 30 U/L (13-56); Albumin, Serum 3.5 g/dL (3.2-5.0); Alkaline Phosphatase 76 U/L (45-117); Anion Gap 8 (5-15); BUN 18 mg/dL (7-18); Calcium,Total 8.4 mg/dL (8.5-10.1); Chloride 108 mmol/L (98-107); Cholesterol 165 mg/dL (200); Creatinine, Serum 0.78 mg/dL (0.55-1.02); EST Glomerular Filtration Rate 79 mL/min (>60); Est Glom Filt Rate - Afr Amer 95 mL/min (>60); Globulin 3.2 g/dL (2.2-4.2); Glucose 102 mg/dL (74-106); High Density Lipoprotein 31 mg/dL; Potassium 3.9 mmol/L (3.5-5.1); Protein, Total 6.7 g/dL (6.4-8.2); Sodium Level 141 mmol/L (136-145); Triglycerides 417 mg/dL
== END ==
PROVIDERS: Family Provider Family Medicine; PCP Family Medicine; Visit Provider Family Medicine
DX: E11.9 Type 2 diabetes mellitus without complications (principal); E78.5 Hyperlipidemia, unspecified; I25.10 Atherosclerotic heart disease of native coronary artery without angina pectoris; I10 Essential (primary) hypertension
CPT/HCPCS: 36415; 80053; 80061; 83036; 85025

== ENCOUNTER → 2019-05-29 09:48 | Outpatient (CLI) | payer OTHER, SELFPAY ==
[2019-05-29 13:17] LABS: Microalbumin,Random Urine 10.4 mg/L (NO RANGE EST.); Microalbumin:Creatinine Ratio 8.6 mg/g CRE (<30 mg/g CRE)
== END ==
PROVIDERS: Family Provider Family Medicine; PCP Family Medicine; Visit Provider Family Medicine
DX: E11.9 Type 2 diabetes mellitus without complications (principal); E78.5 Hyperlipidemia, unspecified; I10 Essential (primary) hypertension; I25.10 Atherosclerotic heart disease of native coronary artery without angina pectoris
CPT/HCPCS: 82043; 82570

== ENCOUNTER → 2019-11-28 07:34 | Outpatient (CLI) | payer MEDICARE, OTHER, SELFPAY ==
[2019-11-28 09:34] LABS: Cholesterol 124 mg/dL (200); Hemoglobin A1c 6.6 % (4.2-6.3); High Density Lipoprotein 36 mg/dL; Thyroid Stim Hormone (TSH) 5.45 uIU/mL (0.358-3.74); Triglycerides 268 mg/dL; Very Low Density Lipoprotein 54 mg/dL (5-40)
== END ==
PROVIDERS: Family Provider Family Medicine; PCP Family Medicine; Referring Provider Family Medicine; Visit Provider Family Medicine
DX: E11.9 Type 2 diabetes mellitus without complications (principal); E78.5 Hyperlipidemia, unspecified
CPT/HCPCS: 36415; 80061; 83036; 84443

== ENCOUNTER → 2020-06-05 08:12 | Outpatient (CLI) | payer MEDICARE, OTHER, SELFPAY ==
[2020-06-05 09:45] LABS: Absolute Lymphocyte Count 3.27 X10^3/uL (0.83-4.51); Absolute Neutrophil Count 4.8 X10^3/uL (2.0-7.7); Basophil# 0.07 X10^3/uL; Basophil% 0.8 % (0-1); Eosinophil# 0.28 X10^3/uL; Hematocrit 47.3 % (37-47); Hemoglobin 15.5 g/dL (12.0-15.0); Lymphocyte # 3.27 X10^3/ul (4.0); Lymphocyte % 35.5 % (19-41); Mean Corp Hgb Conc 32.8 g/dL (32-36); Mean Corpuscular Hgb 28.8 pg (27.0-32.0); Mean Corpuscular Volume 87.9 fL (81-99); Mean Platelet Vol. 10.1 fl (6.2-12.0); Monocyte# 0.72 X10^3/uL; Monocyte% 7.8 % (0-10); NRBC Flagged by Analyzer 0 % (0-5); Neutrophil # 4.83 X10^3/uL (2.7-7.7); Neutrophil % 52.6 % (47-70); Platelet Count 353 K/mm3 (150-450); RBC Distribution Width CV 14.5 % (11.6-14.6); Red Blood Count 5.38 M/mm3 (4.2-5.4); White Blood Count 9.2 K/mm3 (4.4-11.0)
[2020-06-05 10:07] LABS: Microalbumin,Random Urine 17.7 mg/L (NO RANGE EST.); Microalbumin:Creatinine Ratio 20.5 mg/g CRE (<30 mg/g CRE)
[2020-06-05 10:08] LABS: Hemoglobin A1c 6.3 % (3.8-5.6)
[2020-06-05 10:23] LABS: ALB/GLOB Ratio 0.8 RATIO (0.9-2.4); AST(SGOT) 37 U/L (15-37); Alanine Aminotransfer ALT/SGPT 83 U/L (13-56); Albumin, Serum 3.2 g/dL (3.2-5.0); Alkaline Phosphatase 105 U/L (45-117); Anion Gap 7 (5-15); BUN 19 mg/dL (7-18); BUN/Creat Ratio 25.9 RATIO (10-20); Calcium,Total 8.8 mg/dL (8.5-10.1); Chloride 110 mmol/L (98-107); Cholesterol 154 mg/dL (200); Creatinine, Serum 0.74 mg/dL (0.55-1.02); EST Glomerular Filtration Rate 84 mL/min (>60); Est Glom Filt Rate - Afr Amer 102 mL/min (>60); Globulin 3.8 g/dL (2.2-4.2); Glucose 115 mg/dL (74-106); High Density Lipoprotein 39 mg/dL; Potassium 4.1 mmol/L (3.5-5.1); Sodium Level 142 mmol/L (136-145); T4 Free Direct 0.84 ng/dL (0.76-1.46); Thyroid Stim Hormone (TSH) 4.46 uIU/mL (0.358-3.74); Triglycerides 326 mg/dL; Very Low Density Lipoprotein 65 mg/dL (5-40)
== END ==
PROVIDERS: PCP Family Medicine; Referring Provider Family Medicine; Visit Provider Family Medicine
DX: E11.9 Type 2 diabetes mellitus without complications (principal); E78.5 Hyperlipidemia, unspecified; I10 Essential (primary) hypertension; I25.10 Atherosclerotic heart disease of native coronary artery without angina pectoris; R79.89 Other specified abnormal findings of blood chemistry
CPT/HCPCS: 36415; 80053; 80061; 82043; 82570; 83036; 84439; 84443; 85025

== ENCOUNTER → 2020-12-17 10:28 | Outpatient (CLI) | payer MEDICARE, OTHER, SELFPAY ==
[2020-12-17 12:08] LABS: Absolute Neutrophil Count 4.1 X10^3/uL (2.0-7.7); Basophil# 0.05 X10^3/uL; Basophil% 0.6 % (0-1); Eosinophil# 0.25 X10^3/uL; Eosinophils% 3.1 % (0-5); Hematocrit 49.1 % (37-47); Hemoglobin 16.2 g/dL (12.0-15.0); Lymphocyte % 39.1 % (19-41); Mean Platelet Vol. 10.2 fl (6.2-12.0); Monocyte# 0.61 X10^3/uL; Monocyte% 7.5 % (0-10); NRBC Flagged by Analyzer 0 % (0-5); Neutrophil # 4.05 X10^3/uL (2.7-7.7); Neutrophil % 49.5 % (47-70); Platelet Count 367 K/mm3 (150-450); RBC Distribution Width CV 14.5 % (11.6-14.6); RBC Distribution Width SD 46.5 fl (35.1-43.9); Red Blood Count 5.58 M/mm3 (4.2-5.4); White Blood Count 8.2 K/mm3 (4.4-11.0)
[2020-12-17 12:43] LABS: Hemoglobin A1c 6.2 % (3.8-5.6)
[2020-12-17 13:01] LABS: ALB/GLOB Ratio 0.9 RATIO (0.9-2.4); AST(SGOT) 27 U/L (15-37); Alanine Aminotransfer ALT/SGPT 59 U/L (13-56); Albumin, Serum 3.5 g/dL (3.2-5.0); Alkaline Phosphatase 98 U/L (45-117); Anion Gap 9 (5-15); BUN 17 mg/dL (7-18); BUN/Creat Ratio 21.9 RATIO (10-20); Calcium,Total 8.8 mg/dL (8.5-10.1); Chloride 108 mmol/L (98-107); Cholesterol 144 mg/dL (200); Creatinine, Serum 0.78 mg/dL (0.55-1.02); EST Glomerular Filtration Rate 79 mL/min (>60); Est Glom Filt Rate - Afr Amer 95 mL/min (>60); Globulin 3.7 g/dL (2.2-4.2); Glucose 122 mg/dL (74-106); High Density Lipoprotein 41 mg/dL; Potassium 4.1 mmol/L (3.5-5.1); Protein, Total 7.2 g/dL (6.4-8.2); Sodium Level 141 mmol/L (136-145); Thyroid Stim Hormone (TSH) 4.31 uIU/mL (0.358-3.74); Triglycerides 276 mg/dL; Very Low Density Lipoprotein 55 mg/dL (5-40)
== END ==
PROVIDERS: PCP Family Medicine; Referring Provider Family Medicine; Visit Provider Family Medicine
DX: E11.9 Type 2 diabetes mellitus without complications (principal); I10 Essential (primary) hypertension; E78.5 Hyperlipidemia, unspecified; R79.89 Other specified abnormal findings of blood chemistry
CPT/HCPCS: 36415; 80053; 80061; 83036; 84443; 85025

== ENCOUNTER → 2021-01-20 07:26 | Outpatient (CLI) | payer MEDICARE, OTHER, SELFPAY ==
[2021-01-15 07:54] VITALS: BMI 32.5
--- NOTE | 2021-01-20 07:28 | CT_ITS ---
STUDY: CT ABDOMEN WITHOUT CONTRAST REASON FOR EXAM: Female, 65 years old. Abd mass RADIATION DOSAGE (If Supplied By Facility): CTDIvol = ( 11.63 ) mGy, DLP = ( 374.53 ) mGycm TECHNIQUE: Transaxial images were obtained without intravenous contrast, and oral contrast. Sagittal and coronal images were reconstructed. Individualized dose optimization techniques were used for this CT. COMPARISON: None. FINDINGS: The visualized lung bases are unremarkable. Coronary artery calcification. There is decreased attenuation of the liver consistent with steatosis. Hepatomegaly. There are surgical clips in the gallbladder fossa consistent with a prior cholecystectomy. Normal spleen. Normal pancreas. Normal bilateral adrenal glands. Normal right kidney. Normal left kidney. Normal visualized stomach. Normal small intestine. Normal colon. The appendix is visualized and appears normal. There is diffuse atherosclerotic calcification of the abdominal aorta, without a demonstrated aneurysm. Normal inferior vena cava. Normal retroperitoneum. There is a small umbilical hernia containing fat. There are diffuse degenerative changes of the visualized lumbar spine. CT/Abdomen without IV Contrast IMPRESSION: Diffuse fatty infiltration of the liver. Hepatomegaly. Electronically Signed: Gordon Syed MD at 10:11 EDT , Service support ,
== END ==
PROVIDERS: PCP Family Medicine; Referring Provider Surgery; Visit Provider Surgery
DX: R22.2 Localized swelling, mass and lump, trunk (principal)
CPT/HCPCS: 74150

== ENCOUNTER 2021-03-25 06:32 | Day surgery (SDC) | payer MEDICARE, OTHER, SELFPAY ==
[2021-01-15 07:54] VITALS: BMI 32.5
[2021-03-20 13:40] LABS: Hematocrit 45.3 % (37-47); Hemoglobin 15.1 g/dL (12.0-15.0); Mean Corp Hgb Conc 33.3 g/dL (32-36); Mean Corpuscular Hgb 29.4 pg (27.0-32.0); Mean Corpuscular Volume 88.3 fL (81-99); Mean Platelet Vol. 9.4 fl (6.2-12.0); Platelet Count 330 K/mm3 (150-450); RBC Distribution Width CV 14.6 % (11.6-14.6); RBC Distribution Width SD 47.4 fl (35.1-43.9); Red Blood Count 5.13 M/mm3 (4.2-5.4); White Blood Count 8.2 K/mm3 (4.4-11.0)
[2021-03-20 14:08] LABS: Anion Gap 7 (5-15); BUN 20 mg/dL (7-18); BUN/Creat Ratio 26.1 RATIO (10-20); Calcium,Total 8.6 mg/dL (8.5-10.1); Chloride 107 mmol/L (98-107); Creatinine, Serum 0.76 mg/dL (0.55-1.02); EST Glomerular Filtration Rate 80 mL/min (>60); Est Glom Filt Rate - Afr Amer 97 mL/min (>60); Glucose 191 mg/dL (74-106); Potassium 4.2 mmol/L (3.5-5.1); Sodium Level 139 mmol/L (136-145)
[2021-03-20 14:26] LABS: Hemoglobin A1c 6.2 % (3.8-5.6)
[2021-03-25] VITALS (14 sets, daily range): BP systolic 98–140; BP diastolic 45–78; PULSE 70–101; RESP 8–18; TEMP 35.9–36.8; O2SAT 81–97; BMI 33.0
[2021-03-25] MEDS: Vancomycin IV 1,000 MG/200 ML BAG 200 MG IV (07:15)
[2021-03-25] MEDS: Lactated Ringers 1,000 ML 100 ML IV (07:15)
--- NOTE | 2021-03-25 07:31 | PCM.HP.BLA ---
History and Physical Date of Admission: 03/25/21 Intake Visit Reasons: update h&p open inc vent incis coretta rep w mesh 9-1 Chief Complaint: update H&P for incisional hernia Slumber Room Attendant Required: No Is patient in pain?: No Allergies No Known Allergies Allergy (Verified 03/16/21 09:18) Medications aspirin 81 mg PO DAILY 11/19/15 [History Confirmed 03/16/21] atorvastatin 40 mg PO QHS 11/19/15 [History Confirmed 03/16/21] naproxen 500 mg PO DAILY PRN PRN 11/24/17 [History Confirmed 03/16/21] coenzyme Q10 75 mg capsule 75 mg PO DAILY 12/15/18 [History Confirmed 03/16/21] losartan 50 mg tablet 50 mg PO DAILY 12/15/18 [History Confirmed 03/16/21] duloxetine 30 mg capsule,delayed release 30 mg PO DAILY cap 01/15/21 [History Confirmed 03/16/21] PFS Medical History (Updated 03/16/21 @ 10:06 by Elli BAJWA, PA-C) Acid reflux Arthritis Degenerative disc disease, cervical Diabetes Diarrhea Fatigue Heart disease Hemorrhoid Hypertension 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 Obesity (BMI 30.0-34.9) Other intervertebral disc degeneration, lumbar region Other intervertebral disc displacement, lumbar region Screening for intestinal cancer Segmental and somatic dysfunction of cervical region Segmental and somatic dysfunction of thoracic region Tobacco abuse Ventral incisional hernia without obstruction or gangrene Surgical History History of bladder suspension procedure Hx of appendectomy (~2006) Hx of cholecystectomy (~1996) Hx of colonoscopy (~2018) Hx of heart bypass surgery (~2015) Hx of hysterectomy Hx of tonsillectomy Hx of tubal ligation Family History Mother Hypertension Heart disease COPD (chronic obstructive pulmonary disease) CAD (coronary artery disease) Social History Smoking Status: Current every day smoker alcohol intake: never substance use type: does not use caffeine: Yes what type of physical activity do you participate in: none HPI HPI HPI: DEONTE DON, is a 65 F who presents to the office today for an update history and physical for an elective ventral incisional hernia. Patient denies recent hospitalizations or illnesses. Patient denies recent medication changes. She denies previous complications with anesthesia. She notes previous open heart surgery. Previous history of pulmonary embolism following her open heart surgery. Patient previous history per Dr. Gramajo: DEONTE DON, is a 65 F who presents to the office today for surgical consultation regarding a ventral hernia. The patient is referred by her primary care physician Dr. Nura Herrera and written copy my surgical consult recommendations will return to him. The patient states that she thinks that this is related to previous laparoscopic gallbladder surgery that she had in the . She states that about 5 years after her gallbladder surgery she noted a walnut size mass that is progressively enlarged. She felt that it was probably an incisional hernia. Since that time she has had coronary bypass surgery. This was complicated by a MRSA infection of her left proximal thigh vein harvest site and neuropathy of the left lower extremity and pulmonary embolus during the postoperative period as well. The patient is a long-term cigarette smoker. Apparently she ceased for several years but has returned to smoking. 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 Because of financial reasons apparently she was not on her cholesterol medications for at least 8 years. She works at [employer]. Stands on her legs for much of the day. The bulging in the epigastric area of her abdomen continues to increase. She had a previous colonoscopy December 26, 2018 performed by myself. That demonstrated hemorrhoids and sigmoid and descending colon diverticulosis and an ulceration of the ileocecal valve which demonstrated nonspecific colitis on biopsy. As of December 17, 2020 her white blood cell count was 8.2 with a hemoglobin 16.2 hematocrit 49.1 platelet count 367,000. BUN was 17 and creatinine 0.78. Cholesterol at that time was 144 with a triglyceride of 276. ROS General General: Yes fatigue; No weight change, appetite, colon cancer, breast cancer or weakness HEENT HEENT: Yes eye surgery; No difficulty swallowing, eye injury, swollen glands or hoarseness Endo Endocrine: Yes diabetes mellitus; No thyroid disease, thyroid cancer, Hair loss, heat intolerance or cold intolerance Skin Skin: No rash or changing moles Breast Breast: No left breast lump, right breast lump, nipple discharge, breast pain, abnormal mammogram, abnormal US or breast enlargement Musc Musculoskeletal: Yes back problems and arthritis; No rheumatoid arthritis, gout or joint pain Cardio Cardiovascular: Yes heart disease and high blood pressure; No murmur, pacemaker, atrial fibrillation, heart attack, heart stent, palpitations, shortness of breat with exertion or chest pain Psych Psychiatric: No depression, anxiety or hearing voices Resp Respiratory: No shortness of breath, Yes sleep apnea, Yes cough, No COPD, No asthma, No emphysema and No wheezing Gastro Gastrointestinal: No abdominal pain, No nausea or vomiting, Yes diarrhea, No constipation, No blood in stool, No acid reflux, No hemorrhoids, No ulcers, No gallbladder problem and No black,tarry stools Chilo Hematologic: No blood thinners, No blood disorders, No bleeding, No anemia and No blood clots Neuro Neurologic: No system reviewed and no additional complaints, except as documented, No as per HPI, No abnormal gait, No abnormal hearing, No abnormal movements, No abnormal speech, No behavioral changes, No burning sensations, No confusion, No convulsions, No disequilibrium, No dizziness, No localized weakness, No frequent falls, No headache(s), No lack of coordination, No loss of vision, No memory loss, No numbness, No other visual disturbances, No radicular pain, No restless legs, No sensory deficit, No syncope, No tingling, No tremor(s), No weakness and No other Exam Const General: cooperative, healthy appearing, comfortable and no acute distress [facility] Head: normal to inspection Eyes General: appearance normal, both eyes and all related structures Neck Neck: normal visual inspection Neck mass: No Resp Effort & Inspection: normal respiratory effort Auscultation: wheezes inspiratory wheezes, lower bilaterally and upper bilaterally Cardio Rate: regular rate Rhythm: regular rhythm GI Inspection: normal to inspection Palpation: hernia (ventral incisional upper abdominal hernia noted) Auscultation: normal bowel sounds Skin General: no rashes or lesions noted Neuro General: no focal motor deficits and CN's II-XI intact bilaterally Extrem General: normal to inspection Psych Appearance: grossly normal Affect: normal affect COVID (Procedure Consent) Procedure Criteria Procedure Criteria: Yes Elective The surgeon/proceduralist and patient have discussed in detail the risk of exposure to and/or potential harm posed by the COVID-19 virus with having a surgery/procedure at this time versus the risk of delaying the surgery/procedure. It is not possible to know either the risk of delaying the surgery or procedure or chance of getting an infection with perfect accuracy, but a joint decision was made between the patient and the surgeon/proceduralist to proceed at this time with the scheduled surgery/procedure as indicated on the consent form. Assessment and Plan Assessment and Plan (1) Ventral incisional hernia without obstruction or gangrene: Status: Acute Plan - Elli BAJWA, PAAnastsaiaC: Dr. Gramajo will plan to perform an open incarcerated ventral incisional hernia repair with mesh. Procedure details, risks and benefits have been explained. Patient has had the opportunity to ask and have questions answered. Patient verbally understands and agrees with the plan. Plan for patient to be bridged with Lovenox for 7 days starting the day prior to the procedure. She will also need to have IV Vanco an hour prior to the normal arrival time the day of her procedure. Plan Details Goals & Barriers: Goals Decrease pain and spasm Barriers DDD, cspine Caring for baby Coding Level of Care Code No Charge Diagnoses Ventral incisional hernia without obstruction or gangrene K43.2 I have re-examined the patient. There are no clinical changes since date of exam. Jer Gramajo M.D., F.A.C.S.
--- NOTE | 2021-03-25 07:31 | EX.PCM.DISCH ---
Discharge Instructions Procedure General Surgery Diet Discharge Diet: Light diet - advance as tolerated (if you have questions about your diet instructions, please talk to you doctor.) Activity Discharge Activity: May Not Drive (for 3-5 days or while taking narcotic pain medicine.) May shower in (days): 1 Lifting Restrictions: 10 pounds Dressing / Incision Call your doctor if your incision/area has: Continuous Slow Oozing, Sudden Increased Bleeding, Increased Pain/ Swelling, Increased Redness and Foul Smelling Discharge Call your doctor if you observe: Fever of 101 or Higher Suture Line Care: Avoid Pulling/Pushing and Avoid Pinching/Bending Additional Dressing/Incision Instructions:: Change or remove dressing in 4 days. Leave steri-strips in place for 1 week. Follow Up Care Please Follow Up With: Jer Gramajo MD When: Call [phone] to make an appointment to be seen in about 10 days. Test Results: Resume your Lovenox injections tomorrow , March 26, 2021. Administer these injections into your thighs alternating Discharge Plan Admission Primary Reason for Your Visit: Incarcerated epigastric ventral incisional hernia Attending Provider: Jer Gramajo Primary Care Provider: Nura Herrera Consulting Providers: Iftikhar Forman Discharge Orders/Prescriptions Prescriptions: New hydrocodone-acetaminophen 5-325 mg tablet 1 tab PO Q6H PRN (Reason: pain) 2 Days Qty: 6 RF: 0 Continued Ultra CoQ10 75 mg capsule 75 mg PO DAILY RF: 0 losartan 50 mg tablet 50 mg PO DAILY RF: 0 duloxetine 30 mg capsule,delayed release(DR/EC) 30 mg PO DAILY RF: 0 atorvastatin 40 MG tablet 40 mg PO QHS RF: 0 aspirin 81 MG tablet,delayed release (DR/EC) 81 mg PO DAILY RF: 0 naproxen 500 MG tablet 500 mg PO DAILY PRN PRN (Reason: Pain) RF: 0 enoxaparin 40 mg/0.4 mL syringe 40 mg subcut X1 RF: 0 Other Ambulatory Orders: 12 Lead EKG (Routine) Timeframe: [id number] Location: None Selected Ordered By: Dr. Iftikhar Forman Referrals / Follow Up: Nura Herrera DO [Primary Care Provider] - Disposition Disposition (needs filled in before D/C Order can be placed): Home, Self Care
[2021-03-25 08:16] LABS: Bedside Glucose 159 mg/dL (70-110)
--- NOTE | 2021-03-25 09:35 | HERN_PTH ---
PATIENT: DEONTE DON [place] [facility] [id number] AGE/SX: 65/F ROOM: RE03/25/[address]: Dr. Jer Gramajo MD : [id number] BED: DIS: 03/25/2021 SPEC #: [id number] RECD: 03/25/21 10:38 STATUS: ERNESTO REMaria Del Rosario #: [id number] ROSARIO: 03/25/21 09:[address]: Jer Gramajo DEPT: SURGICAL PATHOLOGY RECD BY: Kaylyn Zimmerman ENTERED: 03/25/21 13:21 SP TYPE: Hernia OTHR DR: MD Dr. Nura Lubin DO Tissues: HERNIA Procedures: Surgery Specimen Level II HEADER OPERATION: Open incarcerated ventral incisional hernia repair with mesh PRE-OP DIAGNOSIS: Ventral incisional hernia TISSUE SUBMITTED: Hernia sac and contents MICROSCOPIC DIAGNOSIS Hernia sac and contents: Pieces of fibroadipose tissue with chronic inflammation and reactive changes, clinically hernia sac and contents. MANUEL:graham 03/26/2021 MICROSCOPIC DESCRIPTION Slides are reviewed. GROSS DESCRIPTION Received in fixative is one container labeled with the patient's name and designated hernia sac and contents. The specimen consists of two pieces of yellow adipose tissue that in aggregate measure 11 x 10 x 3 cm. Sections do not reveal any mass lesion. Ground [employer] sections are submitted in one cassette. / MANUEL:graham 03/25/21 TC:5 CPT: 60579
[2021-03-25] MEDS: Bupivacaine Mpf 0.5% 30 ML VIAL (10:00)
--- NOTE | 2021-03-25 10:09 | PCM.OPRPT ---
Problems Associated Problem List Diagnoses (1) Ventral incisional hernia without obstruction or gangrene: Report of Operation Date of Procedure: 03/25/21 Pre-Operative Diagnosis: Symptomatic epigastric ventral incisional hernia Post-Operative Diagnosis: Incarcerated symptomatic ventral incisional hernia Surgery/Procedure Performed:: Ventral incisional herniorrhaphy with Ventralex ST 8 cm mesh Reference [id number] Lot [id number] Expiry date 05/21/2022 Description of Surgical Findings:: Timeout and informed consent was obtained. 65-year-old female was taken to the operating placed upon the table underwent general endotracheal intubation esthesia. Demonstrated prepped draped. Vancomycin 1 g was given intravenously preoperatively. The patient had a previous history of MRSA infection involving her leg harvest site for coronary bypass surgery. Transverse incision was made in the right upper quadrant the site of the obvious bulging mass. Sharp and blunt dissection was used to identify the hernia sac. Contents were significant amount of omentum. The defect itself measured about 2 cm in width could not reduce the omentum so I transected the omentum using 0 Vicryl ligatures. I then excised the sac. That was submitted to his tissue. I created a preperitoneal plane. I then inserted 8 cm Ventralex and secured the tails with him up to 0 Nurolon. The fascia was approximated transversely with simple sutures of 0 Nurolon. A very nice placement and closure was achieved. The periincisional area was anesthetized with 0.5% Marcaine. A total of 10 cc was used. Steri-Strips Telfa OpSite dressings applied followed by abdominal binder. Sponge and instrument and needle counts were reported to the surgeon be correct. Specimen hernia sac and omental contents. Drains none. Blood loss minimal. She was taken to the recovery area in satisfactory addition of apparent complication Jer Gramajo M.D., F.A.C.S. Surgeon: Jer Gramajo Type of Anesthesia: General and Local Anesthesiologist: Armand Block
[2021-03-25] MEDS: HYDROcodone Bitartrate/Apap 5/325 Tablet PO (13:22)
--- NOTE | 2021-03-25 15:05 | SUR.PHASEII ---
SCOTTIE ORIGINALLY SPOKE WITH LIGHTING DIRECTOR, YOGESH: PATIENT VERY PAINFUL, LIKE SPASMS, NORCO 1 TAB NOT HELPFUL. AMBULATED IN HALLWAY, VOIDED. BEFORE YOGESH/DR WAHL COULD RETURN CALL, PATIENT GOT VERY UPSET, YELLING, ANGRY, FOUND SHE/FRIEND HAD DISCONNECTED HER IV, ANXIOUS, PAINFUL, INSISTED SHE WANTED TO LEAVE IMMEDIATELY, DID NOT WANT TO WAIT FOR ANY FURTHER INSTRUCTION FROM DR WAHL. DEMANDING TO D/C IV SO SHE CAN LEAVE. ROOMMATE INSISTS THAT SHE IS TAKING PATIENT HOME RIGHT NOW. WOULD NOT ALLOW MORE VITALS TO BE OBTAINED PRIOR TO D/C BUT DID ALLOW THIS RN TO REVIEW D/C INSTRUCTIONS. EXPLAINED NURSING WAS NOT IGNORING HER CONCERNS AND COMPLAINTS, THAT WE HAD CONTACTED DR WAHL WHO IS IN HIS OFFICE SEEING PATIENTS, AND THAT HE HAD ORDERED ADDITIONAL MEDICATION TO HELP WITH PAINFUL SPASMS TO BE GIVEN IV BUT SHE HAD ALREADY INSISTED WE REMOVE HER IV. PATIENT RELATES SHE WAS UPSET THAT HER ABDOMINAL BINDER HAD BEEN RELEASED TOO QUICKLY EARLIER AND WAS UNPREPARED FOR THE PAIN. FURTHER EXPLANATION AND EDUCATION GIVEN. BOTH VERBALIZE UNDERSTANDING TO INSTRUCTIONS.
== END 2021-03-25 15:31 ==
LOC: SDC 06:34 → AC 06:34
PROVIDERS: Anesthesiology; PCP Family Medicine; Referring Provider Surgery; Visit Provider Surgery
PROC: (CPT 49561; principal; 2021-03-25 09:20)
DX: K43.0 Incisional hernia with obstruction, without gangrene (principal); K21.9 Gastro-esophageal reflux disease without esophagitis; M19.90 Unspecified osteoarthritis, unspecified site; E11.9 Type 2 diabetes mellitus without complications; M50.30 Other cervical disc degeneration, unspecified cervical region; M99.01 Segmental and somatic dysfunction of cervical region; M99.02 Segmental and somatic dysfunction of thoracic region; I25.10 Atherosclerotic heart disease of native coronary artery without angina pectoris; E78.00 Pure hypercholesterolemia, unspecified; E66.9 Obesity, unspecified; M51.16 Intervertebral disc disorders with radiculopathy, lumbar region; F17.210 Nicotine dependence, cigarettes, uncomplicated; Z86.711 Personal history of pulmonary embolism; Z79.82 Long term (current) use of aspirin; Z79.899 Other long term (current) drug therapy; Z95.1 Presence of aortocoronary bypass graft; Z68.33 Body mass index [BMI] 33.0-33.9, adult; Z86.14 Personal history of Methicillin resistant Staphylococcus aureus infection
CPT/HCPCS: 49561; 49568; 36415; 80048; 82962; 83036; 85027; 88302; J7120; C1781; J2405

== ENCOUNTER → 2021-07-13 14:40 | Outpatient (CLI) | payer MEDICARE, OTHER, SELFPAY ==
--- NOTE | 2021-07-13 14:43 | CT_ITS ---
STUDY: LOW DOSE CT LUNG CANCER SCREENING REASON FOR EXAM: Female, 65 years old. SCREENING. Patient smoked 1 pack per day for 45 years. RADIATION DOSAGE (If Supplied By Facility): CTDIvol = ( 3.18 ) mGy, DLP = ( 103.24 ) mGycm TECHNIQUE: No contrast was administered. Low dose technique was utilized (average mAS-38 and kVp 120). 1.25 mm axial source images with a slice interval of 1.25-mm were reconstructed in lung windows. 2.5 mm axial source images with a slice interval of 2.5-mm were reconstructed in lung windows. 5.0 mm axial source images with a slice interval of 5.0-mm were reconstructed in soft tissue windows. Nodule measured using lung windows on PACS and/or independent workstation with automated measurement of minimum and maximum diameter. Nodule measurement reported as average diameter rounded to the nearest whole number. Growth is defined as an increase ins size of greater than 1.5 mm. COMPARISON: None. NODULES: There is a faint 4.9 mm nodule in the posterior medial aspect of the right upper lobe as seen on axial image #39 and coronal image #65. Emphysema: Unremarkable. Endobronchial lesion: Unremarkable. Aorta: Mild atherosclerotic plaque formation of the aortic arch. Coronary arteries: Coronary artery calcification. Heart: Prior CABG. Pulmonary artery: Mediastinal nodes: Small mediastinal lymphadenopathy. Other chest and abdominal findings: CT/Low Dose CT Lung Screening IMPRESSION: Lung-RADS category 3 - Continue screening with LDCT in 6 months. IMPORTANT NOTES FOR USE: ACR Lung-RADS Version 1.1 Assessment Categories Release Date: 2018 Category: Coded 0-4 bases on nodule(s) with highest degree of suspicion. Negative screen is defined as categories 1 and 2; a positive screen is defined as categories 3 and 4. Category 3 and 4A nodules that are unchanged on interval CT should be coded as category 2, and individuals returned to screening in 12 months. Category 4X: Category 3 or 4 nodules with additional imaging findings that increase the suspicion of lung cancer, such as spiculation, GGN that doubles in size in 1 year, enlarged lymph notes, etc. Category Modifiers: S (significant finding unrelated to lung cancer) Electronically Signed: Gordon Syed MD at 15:12 EST , Service support ,
== END ==
PROVIDERS: PCP Family Medicine; Referring Provider Family Medicine; Visit Provider Family Medicine
DX: F17.210 Nicotine dependence, cigarettes, uncomplicated (principal); Z12.2 Encounter for screening for malignant neoplasm of respiratory organs
CPT/HCPCS: 71271

== ENCOUNTER 2021-11-26 17:31 | Emergency (ER) | payer MEDICARE, OTHER, SELFPAY ==
[2021-11-26 17:32] VITALS: BP 135/77; PULSE 101; RESP 16; TEMP 36.7; O2SAT 97; BMI 32.3
[2021-11-26 17:34] VITALS: BP 135/77; PULSE 101; RESP 16; TEMP 36.7; O2SAT 97
[2021-11-26 18:32] VITALS: BP 126/74; PULSE 91; RESP 19; O2SAT 96
[2021-11-26 18:34] VITALS: BP 126/74; PULSE 103; RESP 21; TEMP 36.9; O2SAT 97
--- NOTE | 2021-11-26 18:56 | EDS_ITS ---
HPI History of Present Illness Chief Complaint: Chest Pain Informant: patient Onset/Context/Timing Onset: Yesterday Activity at onset: gradual Timing: Intermittent and Lasts (Seconds) Quality: Positive for Stabbing Location: Substernal Worsened By: Nothing Relieved By: Nothing Narrative Narrative: Patient presents with intermittent chest pain that began last evening. Patient states that only last for a few seconds whenever it comes on. Patient states it is over the substernal area. Patient describes the pain as stabbing. Patient states nothing makes it worse and nothing makes it better. Patient admits to a recent cough. Patient denies any nausea or vomiting. Patient denies any diaphoresis. Patient denies any shortness of breath. Patient denies any fevers or chills. Patient denies any palpitations. Patient does have a history of coronary artery disease and a history of pulmonary embolism. 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 MRSA infection Obesity (BMI 30.0-34.9) Other intervertebral disc degeneration, lumbar region Other intervertebral disc displacement, lumbar region Pulmonary embolism Screening for intestinal cancer Segmental and somatic dysfunction of cervical region Segmental and somatic dysfunction of thoracic region Smoker Tobacco abuse Ventral incisional hernia without obstruction or gangrene Wears glasses Home Medications aspirin 81 mg PO DAILY 11/19/15 [History Last Taken 03/24/21 11:00] atorvastatin 40 mg PO QHS 11/19/15 [History Last Taken 11/19/15 22:00] naproxen 500 mg PO DAILY PRN PRN 11/24/17 [History Last Taken Unknown] coenzyme Q10 75 mg capsule 75 mg PO DAILY 12/15/18 [History Last Taken Unknown] losartan 50 mg tablet 50 mg PO DAILY 12/15/18 [History Last Taken 03/25/21 05:30] melatonin 10 mg PO QHS 11/26/21 [History Last Taken Unknown] Allergy/AdvReac Type Severity Reaction Status Date / Time No Known Allergies Allergy Verified 11/26/21 17:34 Family History Mother Hypertension Heart disease COPD (chronic obstructive pulmonary disease) CAD (coronary artery disease) Surgical History History of bladder suspension procedure History of incisional hernia repair (~03/2021) Hx of appendectomy (~2006) Hx of cholecystectomy (~1996) Hx of colonoscopy (~2018) Hx of heart bypass surgery (~2015) Hx of hysterectomy Hx of tonsillectomy Hx of tubal ligation Social History Smoking Status: Current every day smoker tobacco type: cigarettes alcohol intake: never substance use type: does not use caffeine: Yes what type of physical activity do you participate in: none ROS ROS ED Constitutional Constitutional ED: Denies chills or fever(s) Eyes Eyes: Denies blurry vision or change in vision ENT ENT ED: Denies rhinorrhea or sore throat Cardiovascular Cardiovascular: Reports chest pain; Denies palpitations Respiratory/Chest Respiratory/Chest: Reports cough; Denies dyspnea Gastrointestinal Gastrointestinal: Denies abdominal pain, nausea or vomiting Genitourinary Genitourinary ED: Denies dysuria or hematuria Musculoskeletal Musculoskeletal: Reports neck pain; Denies back pain Integumentary Denies abscess or rash Neurologic Neurologic: Denies headache(s) or weakness Allergic/Immunologic Allergic/Immunologic ED: Denies mouth swelling or urticaria EXAM Physical Exam Const Vital Signs: 11/26/21 17:32 11/26/21 17:34 11/26/21 18:32 Temperature 98.1 F 98.1 F Temperature Source Temporal Temporal Pulse Rate 101 H 101 H 91 Respiratory Rate 16 16 19 H Respiratory Effort Blood Pressure 135/77 H 135/77 H 126/74 H Blood Pressure Mean 96 96 91 Pulse Ox 97 97 96 Oxygen Delivery Method Room Air Room Air Room Air 11/26/21 18:34 11/26/21 18:37 11/26/21 19:00 Temperature 98.4 F Temperature Source Temporal Pulse Rate 103 H 90 Respiratory Rate 21 H 19 H Respiratory Effort Normal Non-Labored Blood Pressure 126/74 H 138/74 H Blood Pressure Mean 91 95 Pulse Ox 97 95 Oxygen Delivery Method Room Air Room Air 11/26/21 20:00 Temperature Temperature Source Pulse Rate 93 Respiratory Rate 15 Respiratory Effort Blood Pressure 128/70 H Blood Pressure Mean 89 Pulse Ox 95 Oxygen Delivery Method Room Air Positive well nourished, well developed and obese General Appearance ED: well developed and NAD Nutritional Appearance: obese HEENT normocephalic and atraumatic Eyes PERRL and EOMs intact bilaterally Neck supple and no JVD Chest Wall palpation of chest normal Resp normal respiratory effort and clear to auscultation bilaterally Effort and Inspection: Negative for respiratory distress Cardio regular rate, regular rhythm and no murmurs GI normal to inspection, nondistended, normoactive bowel sounds, soft to palpation, non-tender and non-distended Extremity normal to inspection General Extremety ED: Negative for edema or tenderness General Extremity: Negative for edema Neuro oriented x3, CN's II-XII intact bilaterally and no sensory deficits noted Sensorium / Orientation: awake and alert Motor Exam: strength 5/5 throughout Psych mental status grossly normal Heart Score History: Slightly/Non-Suspicious ECG: Nonspecific Repolarization Age: >/= 65 years Risk Factors: >/= 3 Risk Factors or History of CAD Score: 5 MDM MDM MDM Narrative Medical decision making narrative: EKG was obtained. On my interpretation, it showed a normal sinus rhythm with a rate of 97. MO interval, QRS interval, and QTc intervals were all normal. [place] was normal. There are nonspecific ST-T wave changes. Portable 1 view chest x-ray was obtained. On my interpretation, lung jacques are clear. There is borderline cardiomegaly. Bony thorax is normal. There is no acute process noted. Radiologist also interpreted the x- ray and agrees. CBC shows a mild leukocytosis of 12.9. Basic metabolic profile was within normal limits. High-sensitivity troponin was less than 3. Patient did not want to wait for all of her results and left prior to completing treatment. Lab Data Attestation: I reviewed the patient's lab results. Labs: Laboratory Results - last 24 hr 11/26/21 11/26/21 19:24 19:24 WBC 12.9 H RBC 5.18 Hgb 15.4 H Hct 45.9 MCV 88.6 MCH 29.7 MCHC 33.6 RDW Std Deviation 46.6 H RDW Coeff of Yaya 14.4 Plt Count 314 MPV 9.4 Immature Gran % (Auto) 0.300 Neut % (Auto) 68.5 Lymph % (Auto) 21.5 [place] % (Auto) 8.0 Eos % (Auto) 1.2 Baso % (Auto) 0.5 Absolute Neuts (auto) 8.8 H Absolute Lymphs (auto) 2.77 Nucleated RBC % 0 Sodium 139 Potassium 4.3 Chloride 106 Carbon Dioxide 26.0 Anion Gap 7 BUN 16 Creatinine 0.77 Estim Creat Clear Calc 51.11 Est GFR (MDRD) Af Amer 96 Est GFR (MDRD) Non-Af 80 BUN/Creatinine Ratio 20.8 H Glucose 100 Calcium 8.6 Troponin I High Sens < 3 L Radiography Chest X-Ray - ED: 1 View, Read by ED Physician, Read by Radiologist, No Acute Disease and Cardiomegaly (Borderline) Diagnostic Testing: Clinical Impression(s) from Imaging Studies Chest X-Ray 11/26/21 19:25 IMPRESSION: 1. Borderline cardiomegaly without heart failure. 2. Previous sternal thoracotomy. 3. No evidence of active cardiopulmonary disease. 4. Lordotic view. 5. Mild demineralization. 6. No interval change since the previous study of 02/23/2019. Electronically Signed: Jared Hope MD at 19:57 EDT , EKG Initial EKG: Attestation: I personally reviewed and interpreted this EKG as follows: Interpretation: Sinus Rhythm (97) and Non-Specific ST Changes Prior: Unchanged (03/25/2021) Discharge Plan Triage Chief Complaint: Chest Pain ED Provider: Iftikhar Sahni Dx/Rx/DC Orders Clinical Impression: Chest pain of uncertain etiology, History of coronary artery disease Prescriptions: No Action Ultra CoQ10 75 mg capsule 75 mg PO DAILY RF: 0 losartan 50 mg tablet 50 mg PO DAILY RF: 0 atorvastatin 40 MG tablet 40 mg PO QHS RF: 0 aspirin 81 MG tablet,delayed release (DR/EC) 81 mg PO DAILY RF: 0 naproxen 500 MG tablet 500 mg PO DAILY PRN PRN (Reason: Pain) RF: 0 melatonin 10 mg Tablet 10 mg PO QHS RF: 0 Primary Care Provider: Nura Herrera Referrals: Nura Herrera DO [Primary Care Provider] - 3-5 Days Disposition Disposition: Elopement
[2021-11-26 19:00] VITALS: BP 138/74; PULSE 90; RESP 19; O2SAT 95
--- NOTE | 2021-11-26 19:01 | EKG12_ITS ---
Test Reason : CP Blood Pressure : / mmHG Vent. Rate : 097 BPM Atrial Rate : 097 BPM P-R Int : 136 ms QRS Dur : 090 ms QT Int : 354 ms P-R-T Axes : 030 040 068 degrees QTc Int : 449 ms Normal sinus rhythm Nonspecific T wave abnormality Abnormal ECG Confirmed by COLE MORALES, ROSALBA ([id number]), editorial cartoonist RAVIN IGNACIO ([id number]) on 11/30/2021 1:46:22 PM Referred By: ADONAY/AVERY Confirmed By:ROSALBA GALVAN MD
--- NOTE | 2021-11-26 19:25 | RAD_ITS ---
STUDY: AP PORTABLE UPRIGHT CHEST X-RAY AT 1925 HOURS ON 11/26/2021 REASON FOR EXAM: 66-year-old female with chest pain. TECHNIQUE: A single view portable AP upright chest x-ray was performed per protocol. COMPARISON: 02/23/2019. FINDINGS: Lordotic view. Mild demineralization. Previous sternal thoracotomy. Borderline cardiomegaly. No pulmonary infiltrates, atelectasis, effusion, or mass lesions. No heart failure. No significant interval change since previous study of 02/23/2019. RAD/Chest 1 View (Portable) IMPRESSION: 1. Borderline cardiomegaly without heart failure. 2. Previous sternal thoracotomy. 3. No evidence of active cardiopulmonary disease. 4. Lordotic view. 5. Mild demineralization. 6. No interval change since the previous study of 02/23/2019. Electronically Signed: Jared Hope MD at 19:57 EDT ,
[2021-11-26] MEDS: Aspirin 81 MG TAB.CHEW 324 MG PO (19:29)
[2021-11-26 19:32] LABS: Absolute Lymphocyte Count 2.77 X10^3/uL (0.83-4.51); Absolute Neutrophil Count 8.8 X10^3/uL (2.0-7.7); Basophil# 0.06 X10^3/uL; Basophil% 0.5 % (0-1); Eosinophil# 0.15 X10^3/uL; Eosinophils% 1.2 % (0-5); Hematocrit 45.9 % (37-47); Hemoglobin 15.4 g/dL (12.0-15.0); Lymphocyte # 2.77 X10^3/ul (0.83-4.51); Lymphocyte % 21.5 % (19-41); Mean Corp Hgb Conc 33.6 g/dL (32-36); Mean Corpuscular Hgb 29.7 pg (27.0-32.0); Mean Corpuscular Volume 88.6 fL (81-99); Mean Platelet Vol. 9.4 fl (6.2-12.0); Monocyte# 1.03 X10^3/uL; NRBC Flagged by Analyzer 0 % (0-5); Neutrophil # 8.84 X10^3/uL (2.7-7.7); Neutrophil % 68.5 % (47-70); Platelet Count 314 K/mm3 (150-450); RBC Distribution Width CV 14.4 % (11.6-14.6); RBC Distribution Width SD 46.6 fl (35.1-43.9); Red Blood Count 5.18 M/mm3 (4.2-5.4); White Blood Count 12.9 K/mm3 (4.4-11.0)
[2021-11-26 19:51] LABS: Anion Gap 7 (5-15); BUN 16 mg/dL (7-18); BUN/Creat Ratio 20.8 RATIO (10-20); Calcium,Total 8.6 mg/dL (8.5-10.1); Chloride 106 mmol/L (98-107); Creatinine, Serum 0.77 mg/dL (0.55-1.02); EST Glomerular Filtration Rate 80 mL/min (>60); Est Glom Filt Rate - Afr Amer 96 mL/min (>60); Estimated Creatinine Clearance 51.11 ml/min; Glucose 100 mg/dL (74-106); Potassium 4.3 mmol/L (3.5-5.1); Sodium Level 139 mmol/L (136-145); Troponin-I HS (w/2H Reflex) < 3 pg/mL (3.0-54.0)
[2021-11-26 20:00] VITALS: BP 128/70; PULSE 93; RESP 15; O2SAT 95
--- NOTE | 2021-11-26 21:06 | ED.RN ---
pt left prior to receiving her results. pt stated i haven't eaten all day. the crackers and drink the nurse gave me was just a snack. pt asked for her results, but refused to stay to allow the er dr to give them to her. she stated i will just follow up with my doctor. ev rose, rn [id number]
[2021-11-26 21:28] LABS: Reflex Troponin-HS? (from REC) Y
== END 2021-11-26 21:06 | disposition left against medical advice (07) ==
PROVIDERS: Emergency Provider Emergency Medicine; PCP Family Medicine; Visit Provider Emergency Medicine
DX: R07.89 Other chest pain (principal); F17.210 Nicotine dependence, cigarettes, uncomplicated; I25.10 Atherosclerotic heart disease of native coronary artery without angina pectoris; E66.9 Obesity, unspecified; I10 Essential (primary) hypertension; Z86.711 Personal history of pulmonary embolism; Z79.82 Long term (current) use of aspirin; Z79.899 Other long term (current) drug therapy
CPT/HCPCS: 71045; 80048; 84484; 85025; 93005; 99283; A4216

== ENCOUNTER → 2022-01-13 | Outpatient (CLI) | payer MEDICARE, OTHER, SELFPAY ==
--- NOTE | 2022-01-13 07:15 | CT_ITS ---
STUDY: CT CHEST WITH T WITHOUT CONTRAST REASON FOR EXAM: Female, 66 years old. EVAL RUL LUNG NODULE RADIATION DOSAGE (If Supplied By Facility): CTDIvol = ( 13.99 ) mGy, DLP = ( 539.00 ) mGycm TECHNIQUE: Transaxial imaging was performed pre-and post contrast administration of IV 100mL [id number]. Individualized dose optimization techniques were used for this CT. COMPARISON: 07/13/2021 FINDINGS: Status post median sternotomy. There is no change in a 6 mm ground glass nodule in the posterior right upper lobe of the lungs image 20 and follow-up CT is recommended in 6 months to document stability. No new noncalcified nodule or mass. There is no demonstrated pleural abnormality. Normal heart and pericardium. Coronary artery calcification Normal mediastinum. Normal hilar regions. Normal enhanced and unenhanced pulmonary arteries. Normal aorta arch and descending thoracic aorta. Normal osseous structures. There is no demonstrated abnormality of the visualized upper abdomen. CT/Chest WITH Contrast IMPRESSION: No change in 6 mm right upper lobe groundglass nodule and follow-up CT is recommended in 6 months to document stability. Electronically Signed: Jan Causey MD at 8:19 EDT ,
[2022-01-13 07:31] LABS: CREATININE FINGERSTICK < 0.9 mg/dL (0.55-1.02); EGFR FINGERSTICK > 60.0000 mL/min (>60)
[2022-01-13 09:11] LABS: Hemoglobin A1c 6.4 % (3.8-5.6)
[2022-01-13 09:22] LABS: ALB/GLOB Ratio 0.9 RATIO (0.9-2.4); AST(SGOT) 24 U/L (15-37); Alanine Aminotransfer ALT/SGPT 57 U/L (13-56); Albumin, Serum 3.4 g/dL (3.2-5.0); Alkaline Phosphatase 107 U/L (45-117); Anion Gap 9 (5-15); BUN 26 mg/dL (7-18); BUN/Creat Ratio 27.6 RATIO (10-20); Calcium,Total 8.8 mg/dL (8.5-10.1); Chloride 108 mmol/L (98-107); Cholesterol 144 mg/dL (200); Creatinine, Serum 0.94 mg/dL (0.55-1.02); EST Glomerular Filtration Rate 63 mL/min (>60); Est Glom Filt Rate - Afr Amer 76 mL/min (>60); Globulin 3.7 g/dL (2.2-4.2); Glucose 112 mg/dL (74-106); High Density Lipoprotein 34 mg/dL; Potassium 4.1 mmol/L (3.5-5.1); Protein, Total 7.1 g/dL (6.4-8.2); Sodium Level 142 mmol/L (136-145); Triglycerides 332 mg/dL; Very Low Density Lipoprotein 66 mg/dL (5-40)
== END | disposition home or self-care (01) ==
PROVIDERS: PCP Family Medicine; Referring Provider Family Medicine; Visit Provider Family Medicine
DX: E11.9 Type 2 diabetes mellitus without complications (principal); I10 Essential (primary) hypertension; E78.5 Hyperlipidemia, unspecified; R91.1 Solitary pulmonary nodule
CPT/HCPCS: 36415; 71260; 80053; 80061; 83036; Q9967

== ENCOUNTER → 2022-07-13 | Outpatient (CLI) | payer MEDICARE, OTHER, SELFPAY ==
[2022-07-13 12:35] LABS: Absolute Lymphocyte Count 3.39 X10^3/uL (0.83-4.51); Absolute Neutrophil Count 3.8 X10^3/uL (2.0-7.7); Basophil# 0.06 X10^3/uL; Basophil% 0.7 % (0-1); Eosinophil# 0.32 X10^3/uL; Hematocrit 46.6 % (37-47); Lymphocyte # 3.39 X10^3/ul (0.83-4.51); Lymphocyte % 41.9 % (19-41); Mean Corp Hgb Conc 34.3 g/dL (32-36); Mean Corpuscular Hgb 30.2 pg (27.0-32.0); Mean Corpuscular Volume 87.9 fL (81-99); Mean Platelet Vol. 10.4 fl (6.2-12.0); Monocyte# 0.54 X10^3/uL; Monocyte% 6.7 % (0-10); NRBC Flagged by Analyzer 0 % (0-5); Neutrophil # 3.76 X10^3/uL (2.7-7.7); Neutrophil % 46.5 % (47-70); Platelet Count 307 K/mm3 (150-450); RBC Distribution Width CV 14.6 % (11.6-14.6); RBC Distribution Width SD 47.1 fl (35.1-43.9); White Blood Count 8.1 K/mm3 (4.4-11.0)
[2022-07-13 12:46] LABS: ALB/GLOB Ratio 0.9 RATIO (0.9-2.4); AST(SGOT) 37 U/L (15-37); Alanine Aminotransfer ALT/SGPT 78 U/L (13-56); Albumin, Serum 3.5 g/dL (3.2-5.0); Alkaline Phosphatase 96 U/L (45-117); Anion Gap 10 (5-15); BUN 17 mg/dL (7-18); BUN/Creat Ratio 20.3 RATIO (10-20); Calcium,Total 8.8 mg/dL (8.5-10.1); Chloride 108 mmol/L (98-107); Cholesterol 163 mg/dL (200); Creatinine, Serum 0.84 mg/dL (0.55-1.02); EST Glomerular Filtration Rate 72 mL/min (>60); Est Glom Filt Rate - Afr Amer 87 mL/min (>60); Globulin 3.7 g/dL (2.2-4.2); Glucose 126 mg/dL (74-106); High Density Lipoprotein 43 mg/dL; Potassium 4.3 mmol/L (3.5-5.1); Protein, Total 7.2 g/dL (6.4-8.2); Sodium Level 141 mmol/L (136-145); Triglycerides 357 mg/dL; Very Low Density Lipoprotein 71 mg/dL (5-40)
[2022-07-13 12:53] LABS: Hemoglobin A1c 6.3 % (3.8-5.6)
[2022-07-13 13:08] LABS: Microalbumin,Random Urine 28.1 mg/L (NO RANGE EST.)
== END | disposition home or self-care (01) ==
LOC: BFHLAB 09:36
PROVIDERS: PCP Family Medicine; Referring Provider Family Medicine; Visit Provider Family Medicine
DX: I25.10 Atherosclerotic heart disease of native coronary artery without angina pectoris (principal); E11.9 Type 2 diabetes mellitus without complications; I10 Essential (primary) hypertension; E78.5 Hyperlipidemia, unspecified
CPT/HCPCS: 36415; 80053; 80061; 82043; 82570; 83036; 85025

== ENCOUNTER 2022-10-26 20:46 | Emergency (ER) | payer MEDICARE, OTHER, SELFPAY ==
[2022-10-26 20:48] VITALS: BP 165/92; PULSE 93; RESP 18; TEMP 36.1; O2SAT 95; BMI 33.1
--- NOTE | 2022-10-26 21:10 | ED.VIS.DENTA ---
HPI History of Present Illness Chief Complaint: Dental Narrative Narrative: 66-year-old female presenting with dental pain. She states she cracked her tooth about 4 months ago. She has not had any problems with it until now. It hurts starting yesterday. She indicates its tooth #5. No drainage. She has mild facial tenderness. No swelling. No difficulty swallowing or breathing. 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 MRSA infection Obesity (BMI 30.0-34.9) Other intervertebral disc degeneration, lumbar region Other intervertebral disc displacement, lumbar region Pulmonary embolism Screening for intestinal cancer Segmental and somatic dysfunction of cervical region Segmental and somatic dysfunction of thoracic region Smoker Tobacco abuse Ventral incisional hernia without obstruction or gangrene Wears glasses Home Medications aspirin 81 mg tablet,delayed release 81 mg PO DAILY 11/19/15 [History Last Taken 03/24/21 11:00] atorvastatin 40 mg tablet 40 mg PO QHS 11/19/15 [History Last Taken 11/19/15 22:00] naproxen 500 mg tablet 500 mg PO DAILY PRN PRN Pain 11/24/17 [History Last Taken Unknown] coenzyme Q10 75 mg capsule (Ultra CoQ10) 75 mg PO DAILY 12/15/18 [History Last Taken Unknown] losartan 50 mg tablet 50 mg PO DAILY 12/15/18 [History Last Taken 03/25/21 05:30] melatonin 10 mg tablet 10 mg PO QHS 11/26/21 [History Last Taken Unknown] amoxicillin 875 mg-potassium clavulanate 125 mg tablet 1 tab PO BID #20 tabs 10/26/22 [Rx Last Taken Unknown] Allergy/AdvReac Type Severity Reaction Status Date / Time Corticosteroids AdvReac Other Verified 10/26/22 20:47 (Glucocorticoids) [steroids] Family History Mother Hypertension Heart disease COPD (chronic obstructive pulmonary disease) CAD (coronary artery disease) Surgical History History of bladder suspension procedure History of incisional hernia repair (~03/2021) Hx of appendectomy (~2006) Hx of cholecystectomy (~1996) Hx of colonoscopy (~2018) Hx of heart bypass surgery (~2015) Hx of hysterectomy Hx of tonsillectomy Hx of tubal ligation Social History Smoking Status: Current every day smoker tobacco type: cigarettes alcohol intake: never substance use type: does not use caffeine: Yes what type of physical activity do you participate in: none ROS ROS ED Constitutional Constitutional ED: Denies chills, fever(s) or sweats Eyes Eyes: Denies blurry vision or change in vision ENT ENT ED: Reports other Details: Dental pain ; Denies ear pain or sore throat Cardiovascular Cardiovascular: Denies chest pain, palpitations or racing heartbeat Respiratory/Chest Respiratory/Chest: Denies cough, dyspnea or sputum Gastrointestinal Gastrointestinal: Denies abdominal pain, constipation, diarrhea, nausea or vomiting Genitourinary Genitourinary ED: Denies dysuria, hematuria or urinary frequency Musculoskeletal Musculoskeletal: Denies arthralgias, myalgias or neck pain Integumentary Denies abscess, Abrasions or rash Neurologic Neurologic: Denies headache(s), paresthesias or weakness Psychiatric Psychiatric: Denies anxiety, depression, suicidal ideation or suicidal thoughts Endocrine Endocrinology: Denies polydipsia or polyuria EXAM Physical Exam Const Vital Signs: 10/26/22 20:48 Temperature 97 F L Temperature Source Temporal Pulse Rate 93 Respiratory Rate 18 Blood Pressure 165/92 H Blood Pressure Mean 116 Pulse Ox 95 Oxygen Delivery Method Room Air Positive well nourished General Appearance ED: NAD HEENT HEENT Narrative: Tooth #5 tender to percussion. Mild local edema without abscess. Mild facial swelling associated Mouth ED: Yes lips normal, Yes tongue normal and Yes salivary gland normal Mouth: lips normal, tongue normal and salivary gland normal Throat: posterior oropharynx normal Neck no lymphadenopathy and supple Resp normal respiratory effort Cardio regular rate and regular rhythm Neuro oriented x3 and CN's II-XII intact bilaterally Psych mental status grossly normal MDM MDM MDM Narrative Medical decision making narrative: Patient presenting with remote dental trauma. She states is now starting to hurt. She has a mild facial and gum swelling around it. Tooth #5. Patient started on antibiotics here in the ED. She is given dental referral sheet. NSAIDs for pain. Return precautions discussed. Impression: 1. Dental infection 2. Noted to Discharge Plan Triage Chief Complaint: Dental ED Provider: Raul Pedraza Dx/Rx/DC Orders Instructions: ED Dental Pain, ED Dental Trauma Prescriptions: New amoxicillin-pot clavulanate 875-125 mg tablet 1 tab PO BID Qty: 20 0RF No Action Ultra CoQ10 75 mg capsule 75 mg PO DAILY losartan 50 mg tablet 50 mg PO DAILY atorvastatin 40 MG tablet 40 mg PO QHS Label Comments: cholesterol aspirin 81 MG tablet,delayed release (DR/EC) 81 mg PO DAILY Label Comments: blood thinner /preventative naproxen 500 MG tablet 500 mg PO DAILY PRN PRN (Reason: Pain) melatonin 10 mg Tablet 10 mg PO QHS Primary Care Provider: Nura Herrera Referrals: Nura Herrera DO [Primary Care Provider] - Disposition Disposition: Home, Self Care
[2022-10-26] MEDS: Amox/Clavulanate 875 MG Tablet PO (21:15)
== END 2022-10-26 21:27 | disposition home or self-care (01) ==
LOC: ED 21:16
PROVIDERS: Emergency Provider Student in an Organized Health Care Education/Training Program; PCP Family Medicine; Visit Provider Student in an Organized Health Care Education/Training Program
DX: K04.7 Periapical abscess without sinus (principal); F17.210 Nicotine dependence, cigarettes, uncomplicated
CPT/HCPCS: 99283

== ENCOUNTER 2023-02-21 08:26 | Emergency (ER) | payer MEDICARE, OTHER, SELFPAY ==
[2023-02-21 08:27] VITALS: BP 127/72; PULSE 88; RESP 16; TEMP 36.8; O2SAT 100; BMI 29.3
--- NOTE | 2023-02-21 08:44 | CT_ITS ---
STUDY: CT ABDOMEN AND PELVIS WITH CONTRAST REASON FOR EXAM: Female, 67 years old. Left groin mass. Mass along the labia majora. RADIATION DOSAGE (If Supplied By Facility): CTDIvol = ( 21.32 ) mGy, DLP = ( 877.67 ) mGycm TECHNIQUE: Transaxial images were obtained from the dome of the diaphragm to the symphysis pubis without oral contrast. IV 100mL Isovue-300 was administered. Sagittal and coronal images were reconstructed. Individualized dose optimization techniques were used for this CT. COMPARISON: Comparison is made with prior study dated January 20, 2021. FINDINGS: The visualized lung bases are unremarkable. Prior CABG. There is decreased attenuation of the liver consistent with steatosis. Borderline hepatomegaly. There are surgical clips in the gallbladder fossa consistent with a prior cholecystectomy. Normal spleen. Normal pancreas. Nodular enlargement of the left adrenal gland. Normal right kidney. Normal left kidney. Normal visualized stomach. Normal small intestine. Normal colon. The patient is status post appendectomy. There is diffuse atherosclerotic calcification of the abdominal aorta, without a demonstrated aneurysm. Normal inferior vena cava. There is borderline retroperitoneal lymphadenopathy with enlarged nodes no greater than 10mm in the short axis diameter. Normal urinary bladder. There is absence of the uterus consistent with a prior hysterectomy. There is enlargement of the left labia majora. Increased markings are seen in the subcutaneous fat suggestive of a possible inflammatory change. Is also evidence of a 1.6 cm x 1.2 cm hypodensity in the posterior aspect of the left labia majora suggestive of possible abscess. Small benign-appearing bilateral inguinal lymph nodes. There are diffuse degenerative changes of the visualized lumbar spine. CT/Abdomen/Pelvis W IV Cont ONLY IMPRESSION: Fatty infiltration of the liver. Status post appendectomy, cholecystectomy and hysterectomy. Enlargement of the left labia majora with the increased markings in the subcutaneous fat as well as a 1.6 cm x 1.2 cm hypodense nodule along its peripheral aspect suggests a possible small abscess. Electronically Signed: Gordon Syed MD at 9:53 EDT ,
--- NOTE | 2023-02-21 08:46 | EX.ED.DYSGE1 ---
HPI History of Present Illness Chief Complaint: Abscess Narrative Narrative: 67-year-old female presenting with a mass in the left groin area. She thought that yesterday she was just chafed and she put some Lotrimin on it. Today she states is very swollen and painful. She states she believes it is a boil. She denies any trauma. She states it has not been any drainage. She does not feel unwell. She has not had any fevers or chills. Patient does have history of MRSA. 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 MRSA infection Obesity (BMI 30.0-34.9) Other intervertebral disc degeneration, lumbar region Other intervertebral disc displacement, lumbar region Pulmonary embolism Screening for intestinal cancer Segmental and somatic dysfunction of cervical region Segmental and somatic dysfunction of thoracic region Smoker Tobacco abuse Ventral incisional hernia without obstruction or gangrene Wears glasses Home Medications atorvastatin 40 mg tablet 40 mg PO QHS 11/19/15 [History Last Taken 11/19/15 22:00] losartan 50 mg tablet 50 mg PO DAILY 12/15/18 [History Last Taken 03/25/21 05:30] hydrocodone-acetaminophen 5-325mg 5mg-325mg 1 tab PO Q6H PRN PRN Pain 3 days #10 TABLETS 02/21/23 [Rx Last Taken Unknown] sulfamethoxazole 800 mg-trimethoprim 160 mg tablet (Bactrim DS) 1 tab PO BID 10 days #20 tabs 02/21/23 [Rx Last Taken Unknown] Allergy/AdvReac Type Severity Reaction Status Date / Time Corticosteroids AdvReac Other Verified 02/21/23 08:29 (Glucocorticoids) [steroids] Family History Mother Hypertension Heart disease COPD (chronic obstructive pulmonary disease) CAD (coronary artery disease) Surgical History History of bladder suspension procedure History of incisional hernia repair (~03/2021) Hx of appendectomy (~2006) Hx of cholecystectomy (~1996) Hx of colonoscopy (~2018) Hx of heart bypass surgery (~2016) Hx of hysterectomy Hx of tonsillectomy Hx of tubal ligation Social History Smoking Status: Current every day smoker tobacco type: cigarettes alcohol intake: never substance use type: does not use caffeine: Yes what type of physical activity do you participate in: none ROS ROS ED Constitutional Constitutional ED: Denies chills, fever(s) or sweats Eyes Eyes: Denies blurry vision or change in vision ENT ENT ED: Denies ear pain or sore throat Cardiovascular Cardiovascular: Denies chest pain, palpitations or racing heartbeat Respiratory/Chest Respiratory/Chest: Denies cough, dyspnea or sputum Gastrointestinal Gastrointestinal: Denies abdominal pain, constipation, diarrhea, nausea or vomiting Genitourinary Genitourinary ED: Denies dysuria, hematuria or urinary frequency Musculoskeletal Musculoskeletal: Denies arthralgias, myalgias or neck pain Integumentary Reports abscess; Denies Abrasions or rash Neurologic Neurologic: Denies headache(s), paresthesias or weakness Psychiatric Psychiatric: Denies anxiety, depression, suicidal ideation or suicidal thoughts Endocrine Endocrinology: Denies polydipsia or polyuria EXAM Physical Exam Const Vital Signs: 02/21/23 08:27 Temperature 98.2 F Temperature Source Temporal Pulse Rate 88 Respiratory Rate 16 Blood Pressure 127/72 H Blood Pressure Mean 90 Pulse Ox 100 Oxygen Delivery Method Room Air Positive well nourished General Appearance ED: NAD HEENT Reports moist mucous membranes Resp normal respiratory effort Cardio regular rate and regular rhythm GI normal to inspection, nondistended, normoactive bowel sounds and non-tender Narrative: Approximately 2 cm fluctuant area over the very lateral aspect of the labia majora/inguinal region. The labia majora is secondarily swollen underneath this and is the size of a golf ball. It is firm and tender to palpation. Neuro oriented x3 and CN's II-XII intact bilaterally Sensorium / Orientation: alert Skin Skin Narrative: As described above MDM MDM MDM Narrative Medical decision making narrative: Patient was a large mass on the lateral labia majora/inguinal region with more swelling into the labia majora the size of a golf ball. There is a small fluctuant area about 2 cm overlying this. Differential includes abscess, cellulitis, mass. We will obtain a CBC to assess white blood cell count, hemoglobin and platelets, BMP to assess renal function electrolytes. We will obtain a CT of the pelvic region to better delineate this mass. Patient states she does not anything for pain currently but will take something for pain if she has to have this drained. CBC is reassuring with white blood count of 9.1. Hemoglobin hematocrit are stable. BMP shows normal renal function and electrolytes. CBC and BMP unremarkable. CT did not show any large abscess there is some increased markings in the area where it is swollen like a golf ball. Patient consented for incision and drainage. Area was cleaned with ChloraPrep. She was anesthetized with 6 cc of lidocaine with epinephrine with good anesthesia achieved. A cruciate incision was made midline of the abscess and this was deloculated and drained. This was irrigated with copious amounts of normal saline. Patient tolerated procedure well. There was purulent drainage. Patient with history of MRSA so she will be treated with Bactrim. First dose given in the ED. Patient counseled on sitz bath. She is given return precautions. She is also given pain medication for home. Impression: 1. Abscess Lab Data Attestation: I reviewed the patient's lab results. Labs: Laboratory Results - last 24 hr 02/21/23 08:56 WBC 9.1 RBC 5.09 Hgb 15.0 Hct 44.6 MCV 87.6 MCH 29.5 MCHC 33.6 RDW Std Deviation 45.1 H RDW Coeff of Yaya 14.0 Plt Count 327 MPV 9.8 Immature Gran % (Auto) 0.200 Neut % (Auto) 56.7 Lymph % (Auto) 32.2 Harmon % (Auto) 7.1 Eos % (Auto) 3.1 Baso % (Auto) 0.7 Absolute Neuts (auto) 5.2 Absolute Lymphs (auto) 2.94 Nucleated RBC % 0 Sodium 142 Potassium 4.1 Chloride 112 H Carbon Dioxide 24.0 Anion Gap 6 BUN 15 Creatinine 0.81 Estim Creat Clear Calc 62.23 Est GFR (MDRD) Af Amer 90 Est GFR (MDRD) Non-Af 74 BUN/Creatinine Ratio 18.4 Glucose 108 H Calcium 8.7 Radiography Diagnostic Testing: Clinical Impression(s) from Imaging Studies Abdomen/Pelvis CT 02/21/23 08:44 IMPRESSION: Fatty infiltration of the liver. Status post appendectomy, cholecystectomy and hysterectomy. Enlargement of the left labia majora with the increased markings in the subcutaneous fat as well as a 1.6 cm x 1.2 cm hypodense nodule along its peripheral aspect suggests a possible small abscess. Electronically Signed: Gordon Syed MD at 9:53 EDT , Discharge Plan Triage Chief Complaint: Abscess ED Provider: Raul Pedraza Dx/Rx/DC Orders Instructions: ED Abscess Incision And Drainage Prescriptions: New sulfamethoxazole-trimethoprim [Bactrim DS] 800-160 mg tablet 1 tab PO BID 10 Days Qty: 20 0RF hydrocodone-acetaminophen 5-325 mg tablet 1 tab PO Q6H PRN PRN (Reason: Pain) 3 Days Qty: 10 0RF No Action losartan 50 mg tablet 50 mg PO DAILY atorvastatin 40 MG tablet 40 mg PO QHS Patient Comments: cholesterol Primary Care Provider: Nura Herrera Referrals: Nura Herrera DO [Primary Care Provider] - Disposition Disposition: Home, Self Care Discharge Date/Time: 02/21/23 10:56
[2023-02-21 09:04] LABS: Absolute Lymphocyte Count 2.94 X10^3/uL (0.83-4.51); Absolute Neutrophil Count 5.2 X10^3/uL (2.0-7.7); Basophil# 0.06 X10^3/uL; Basophil% 0.7 % (0-1); Eosinophil# 0.28 X10^3/uL; Eosinophils% 3.1 % (0-5); Hematocrit 44.6 % (37-47); Lymphocyte # 2.94 X10^3/ul (0.83-4.51); Lymphocyte % 32.2 % (19-41); Mean Corp Hgb Conc 33.6 g/dL (32-36); Mean Corpuscular Hgb 29.5 pg (27.0-32.0); Mean Corpuscular Volume 87.6 fL (81-99); Mean Platelet Vol. 9.8 fl (6.2-12.0); Monocyte# 0.65 X10^3/uL; Monocyte% 7.1 % (0-10); NRBC Flagged by Analyzer 0 % (0-5); Neutrophil # 5.19 X10^3/uL (2.7-7.7); Neutrophil % 56.7 % (47-70); Platelet Count 327 K/mm3 (150-450); RBC Distribution Width SD 45.1 fl (35.1-43.9); Red Blood Count 5.09 M/mm3 (4.2-5.4); White Blood Count 9.1 K/mm3 (4.4-11.0)
[2023-02-21 09:15] LABS: Anion Gap 6 (5-15); BUN 15 mg/dL (7-18); BUN/Creat Ratio 18.4 RATIO (10-20); Calcium,Total 8.7 mg/dL (8.5-10.1); Chloride 112 mmol/L (98-107); Creatinine, Serum 0.81 mg/dL (0.55-1.02); EST Glomerular Filtration Rate 74 mL/min (>60); Est Glom Filt Rate - Afr Amer 90 mL/min (>60); Estimated Creatinine Clearance 62.23 ml/min; Glucose 108 mg/dL (74-106); Potassium 4.1 mmol/L (3.5-5.1); Sodium Level 142 mmol/L (136-145)
[2023-02-21] MEDS: Smz/Tmp Ds Tablet 1 TABLET PO (10:45)
[2023-02-21] MEDS: Lidocaine 1% /Epi 1:100 (20ml) 20 ML Vial 30 ML INFILT (10:45)
== END 2023-02-21 10:56 | disposition home or self-care (01) ==
PROVIDERS: Emergency Provider Student in an Organized Health Care Education/Training Program; PCP Family Medicine; Visit Provider Student in an Organized Health Care Education/Training Program
DX: L02.214 Cutaneous abscess of groin (principal); E78.00 Pure hypercholesterolemia, unspecified; I10 Essential (primary) hypertension; F17.210 Nicotine dependence, cigarettes, uncomplicated; Z79.899 Other long term (current) drug therapy; Z86.711 Personal history of pulmonary embolism; Z95.1 Presence of aortocoronary bypass graft
CPT/HCPCS: 10060; 74177; 80048; 85025; 99283; Q9967; A4216

== ENCOUNTER → 2023-07-19 | Outpatient (CLI) | payer MEDICARE, OTHER, SELFPAY ==
[2023-07-19 10:08] LABS: Absolute Lymphocyte Count 3.52 X10^3/uL (0.83-4.51); Absolute Neutrophil Count 5.3 X10^3/uL (2.0-7.7); Basophil# 0.07 X10^3/uL; Basophil% 0.7 % (0-1); Eosinophil# 0.31 X10^3/uL; Eosinophils% 3.1 % (0-5); Hematocrit 48.2 % (37-47); Hemoglobin 15.8 g/dL (12.0-15.0); Lymphocyte # 3.52 X10^3/ul (0.83-4.51); Lymphocyte % 35.7 % (19-41); Mean Corp Hgb Conc 32.8 g/dL (32-36); Mean Corpuscular Hgb 29.4 pg (27.0-32.0); Mean Corpuscular Volume 89.8 fL (81-99); Mean Platelet Vol. 10.3 fl (6.2-12.0); Monocyte# 0.67 X10^3/uL; Monocyte% 6.8 % (0-10); NRBC Flagged by Analyzer 0 % (0-5); Neutrophil # 5.26 X10^3/uL (2.7-7.7); Neutrophil % 53.4 % (47-70); Platelet Count 315 K/mm3 (150-450); RBC Distribution Width CV 14.7 % (11.6-14.6); RBC Distribution Width SD 48.1 fl (35.1-43.9); Red Blood Count 5.37 M/mm3 (4.2-5.4); White Blood Count 9.9 K/mm3 (4.4-11.0)
[2023-07-19 10:31] LABS: Hemoglobin A1c 5.6 % (3.8-5.6)
[2023-07-19 10:37] LABS: ALB/GLOB Ratio 1.1 RATIO (0.9-2.4); AST(SGOT) 18 U/L (15-37); Alanine Aminotransfer ALT/SGPT 30 U/L (13-56); Albumin, Serum 3.7 g/dL (3.2-5.0); Alkaline Phosphatase 88 U/L (45-117); Anion Gap 5 (5-15); BUN 17 mg/dL (7-18); BUN/Creat Ratio 23.9 RATIO (10-20); Calcium,Total 8.6 mg/dL (8.5-10.1); Chloride 111 mmol/L (98-107); Cholesterol 147 mg/dL (200); Creatinine, Serum 0.71 mg/dL (0.55-1.02); EST Glomerular Filtration Rate 87 mL/min (>60); Est Glom Filt Rate - Afr Amer 105 mL/min (>60); Globulin 3.3 g/dL (2.2-4.2); Glucose 101 mg/dL (74-106); High Density Lipoprotein 49 mg/dL; Potassium 3.8 mmol/L (3.5-5.1); Sodium Level 142 mmol/L (136-145); Triglycerides 277 mg/dL; Very Low Density Lipoprotein 55 mg/dL (5-40)
[2023-07-19 15:41] LABS: Microalbumin,Random Urine 16.1 mg/L (NO RANGE EST.); Microalbumin:Creatinine Ratio 11.8 mg/g CRE (<30 mg/g CRE)
== END | disposition home or self-care (01) ==
PROVIDERS: PCP Family Medicine; Referring Provider Family Medicine; Visit Provider Family Medicine
DX: R73.03 Prediabetes (principal); I10 Essential (primary) hypertension; I25.10 Atherosclerotic heart disease of native coronary artery without angina pectoris
CPT/HCPCS: 36415; 80053; 80061; 82043; 82570; 83036; 85025

== ENCOUNTER → 2023-07-29 | Outpatient (CLI) | payer MEDICARE, OTHER, SELFPAY ==
--- NOTE | 2023-07-29 14:01 | CT_ITS ---
EXAM: CT CHEST, LUNG CANCER SCREENING WITHOUT INTRAVENOUS CONTRAST CLINICAL INDICATION: LUNG CANCER SCREEN TECHNIQUE: Helically acquired images were obtained of the chest without intravenous contrast using low dose (LDCT) lung cancer screening protocol. This CT exam was performed using one or more of the following dose reduction techniques: automated exposure control, adjustment of the mA and/or kV according to patient size, and/or use of iterative reconstruction technique. COMPARISON: 01/13/2022 FINDINGS: LUNGS AND PLEURAL SPACES: There is a 6 mm area of groundglass opacity in the right lung apex which is stable. No mass. No pleural effusion or thickening. No pneumothorax. HEART: Unremarkable. Heart size is normal. No pericardial effusion. No significant coronary artery calcifications. MEDIASTINUM: Unremarkable. No mediastinal or hilar adenopathy. Esophagus is unremarkable. No hiatal hernia. THYROID: Unremarkable. No thyroid lesions. BONES/JOINTS: Unremarkable. No suspicious lytic or blastic abnormality. VASCULATURE: Unremarkable. Thoracic aorta is non-dilated. LYMPH NODES: Unremarkable. No enlarged lymph nodes. CT/Low Dose CT Lung Screening IMPRESSION: Stable 6 mm area of groundglass opacity in the right apex. There is no acute pulmonary abnormality. Lung-RADS score: 2 - Benign Appearance or Behavior. Recommend continued annual screening with a low-dose CT (LDCT) in 12 months. Electronically Signed: Carlos Hackett MD at 20:13 [facility] ,
--- OUTSIDE RECORDS SUMMARY | 2023-07-29 14:26 | XMS RPT_ITS | CCD ---
Author Name Unknown Address [id number] [place] [address] Organization [facility] Care Team Providers Care Delivery Aide Name Role Phone Felisha Leonardo DC Unavailable Negrita Garsia Unavailable Unavailable Negrita Garsia Unavailable Unavailable Felisha Leonardo DC Unavailable Medications Completed/Discontinued Medications Medication Drug Class(es) Dates Sig (Normalized) Sig (Original) amiodarone hydrochloride 200 mg oral tablet (20 sources) Antiarrhythmic Start: 11-10-2015 End: 11-12-2015 take 1 tablet by mouth once daily AMIODARONE HCL 200 MG TABS One tablet by mouth daily AMIODARONE HCL [id number] Gurjit Clifton MD aspirin 81 mg oral tablet (18 sources) Platelet Aggregation Inhibitor, Nonsteroidal Anti-inflammatory Drug Start: 11-10-2015 take 1 tablet by mouth once daily ASPIRIN 81 MG TABS One tablet by mouth daily ASPIRIN [id number] Tania Echavarria RN Problems Active Problems Problem Classification Problem Date Documented Date Episodic/Chronic Acute myocardial infarction (18 sources) Non-ST elevation (NSTEMI) myocardial infarction; Translations: [Non-ST elevation (NSTEMI) myocardial infarction] Onset: 11-05-2015 11-05-2015 Chronic Cardiac dysrhythmias (20 sources) Permanent atrial fibrillation ; Translations: [Persistent atrial fibrillation] Onset: 11-10-2015 02-23-2016 Chronic Complication of device; implant or graft (18 sources) Arteriosclerosis of coronary artery bypass graft; Translations: [Atherosclerosis of coronary artery bypass graft(s) without angina pectoris] Onset: 03-02-2016 03-02-2016 Chronic Coronary atherosclerosis and other heart disease (18 sources) 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; Translations: [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] Onset: 11-05-2015 11-05-2015 Chronic Disorders of lipid metabolism (20 sources) Hypercholesterolemia; Translations: [Hypertriglyceridemia] Onset: 11-05-2015 04-07-2017 Chronic Essential hypertension (18 sources) Hypertensive disorder; Translations: [Essential (primary) hypertension] Onset: 11-05-2015 11-05-2015 Chronic Osteoarthritis (17 sources) Osteoarthritis; Translations: [Unspecified osteoarthritis, unspecified site] Onset: 04-07-2017 04-07-2017 Chronic Other nutritional; endocrine; and metabolic disorders (20 sources) Body mass index (BMI) 30.0-30.9, adult; Translations: [Body mass index 25-29 - overweight] Onset: 12-01-2015 02-23-2016 Chronic Other nutritional; endocrine; and metabolic disorders (5 sources) Body mass index 25-29 - overweight; Translations: [Overweight] Onset: 12-01-2015 12-01-2015 Chronic Spondylosis; intervertebral disc disorders; other back problems (17 sources) Degeneration of cervical intervertebral disc; Translations: [Other cervical disc degeneration, unspecified cervical region] Onset: 04-07-2017 04-11-2017 Chronic Substance-related disorders (18 sources) Nicotine dependence; Translations: [Nicotine dependence, unspecified, uncomplicated] Onset: 11-05-2015 11-05-2015 Chronic Unclassified (12 sources) Long-term drug therapy; Translations: [Other mechanical engineering teacher (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) drug therapy] Onset: 11-05-2015 11-05-2015 Past or Other Problems Problem Classification Problem Date Documented Da te Episodic/Chronic Coronary atherosclerosis and other heart disease (18 sources) Presence of aortocoronary bypass graft; Translations: [Presence of aortocoronary bypass graft] Onset: 11-05-2015 11-05-2015 Episodic Other aftercare (6 sources) Other mechanical engineering teacher (current) drug therapy; Translations: [Other prison (current) drug therapy] Onset: 11-05-2015 11-05-2015 Episodic Other bone disease and musculoskeletal deformities (20 sources) Segmental and somatic dysfunction; Translations: [Segmental and somatic dysfunction of thoracic region] Onset: 04-07-2017 04-11-2017 Episodic Pulmonary heart disease (18 sources) Pulmonary embolism; Translations: [Other pulmonary embolism without acute cor pulmonale] Onset: 03-02-2016 03-02-2016 Episodic Residual codes; unclassified (18 sources) Family history of alcoholism; Translations: [Family history of alcohol abuse and dependence] 03-02-2016 Episodic Skin and subcutaneous tissue infections (18 sources) Cellulitis; Translations: [Cellulitis, unspecified] Onset: 12-01-2015 12-01-2015 Episodic Results Test Name Value Interpretation Reference Range Facil ity Vital Signs Date Time Vital Sign Value Performing Clinician Facility 04-07-2017 14:44-0400 BMI (Body Mass Index) 34.54 kg/m2 [facility] Work Phone: 04-07-2017 14:44-0400 Pulse (Heart Rate) 83 /min [facility] Work Phone: 04-07-2017 14:44-0400 Respiratory Rate 21 /min [facility] Work Phone: 04-07-2017 14:44-0400 Weight 97.07 kg [facility] Work Phone: 08-26-2016 10:04-0500 BMI (Body Mass Index) 32.6 kg/m2 [facility] Work Phone: 08-26-2016 10:04-0500 BP Diastolic 70 mm[Hg] [facility] Work Phone: 08-26-2016 10:04-0500 BP Systolic 122 mm[Hg] [facility] Work Phone: 08-26-2016 10:04-0500 BSA (Body Surface Area) 2.01 m2 [facility] Work Phone: 08-26-2016 10:04-0500 Pulse (Heart Rate) 88 /min [facility] Work Phone: 08-26-2016 10:04-0500 Respiratory Rate 20 /min Negrita Ruggieroimes [facility] Work Phone: 08-26-2016 10:04-0500 Weight 91.63 kg Negrita Ruggieroimes [facility] Work Phone: 03-02-2016 13:13-0400 Body Temperature 98.4 [degF] [facility]grita [facility] Work Phone: 11-12-2015 10:41-0400 Heart rate 63 /min Negrita Ruggiero[facility] Work Phone: 11-12-2015 10:18-0400 Height 167.64 cm [facility] Work [facility]: 11-12-2015 10:18-0400 Pulse Oximetry 96 % Negrita Ruggieroimes [facility] Work Phone: Procedures Date Procedure Procedure Detail Performing Clinician Start: 06-13-2017 End: 06-13-2017 Chiropractic manipulative tx spinal 1-2 regions Felisha Marx Dossi DC Work Phone: Start: 05-30-2017 End: 05-30-2017 Chiropractic manipulative tx spinal 1-2 regions Felisha B Dossi DC Work Phone: Start: 05-16-2017 End: 05-16-2017 Chiropractic manipulative tx spinal 1-2 regions Felisha B Dossi DC Work Phone: Start: 04-26-2017 End: 04-26-2017 Chiropractic manipulative tx spinal 1-2 regions Felisha B Dossi DC Work Phone: Start: 04-19-2017 End: 04-19-2017 Chiropractic manipulative tx spinal 1-2 regions Felisha B Dossi DC Work Phone: Start: 04-19-2017 End: 04-19-2017 Chiropract manj 1-2 regions Felisha B Dossi DC Work Phone: Start: 04-14-2017 End: 04-14-2017 Chiropractic manipulative tx spinal 1-2 regions Felisha B Dossi DC Work Phone: Start: 04-14-2017 End: 04-14-2017 Chiropract manj 1-2 regions Felisha B Dossi DC Work Phone: Start: 04-12-2017 End: 04-13-2017 Chiropractic manipulative tx spinal 1-2 regions Felisha B Dossi DC Work Phone: Start: 04-11-2017 End: 04-13-2017 Chiropract manj 1-2 regions Felisha B Dossi DC Work Phone: Start: 04-11-2017 End: 04-11-2017 Chiropract manj 1-2 regions Felisha B Dossi DC Work Phone: Start: 04-07-2017 End: 04-07-2017 Dietary management education, guidance, and counseling Felisha Leonardo DC Start: 08-26-2016 End: 08-31-2016 *Hepatic Function Panel Delon Scanlon Start: 08-26-2016 End: 08-26-2016 Follow Up Appt 6 months Delon Scanlon Start: 08-26-2016 End: 08-31-2016 Lipid 1996 panel - Serum or Plasma Gurjit Clifton MD Start: 08-26-2016 End: 08-26-2016 MMM Gurjit Clifton MD Start: 08-26-2016 End: 08-31-2016 *Hepatic Function Panel Delon Scanlon Start: 08-26-2016 End: 08-26-2016 Follow Up Appt 6 months Delon Scanlon Start: 08-26-2016 End: 08-31-2016 Lipid panel [AGGREGATE] Delon Scanlon Start: 08-26-2016 End: 08-26-2016 MMM Gurjit Clifton MD Start: 02-23-2016 End: 02-23-2016 NATALIE Joe PA-C Work Phone: Start: 02-23-2016 End: 02-23-2016 Follow Up Appt 6 months Chelsea kulkarni PA-C Work Phone: Start: 02-23-2016 End: 02-23-2016 Follow Up Appt Other Chelsea brandt PA-C Work Phone: Start: 02-23-2016 End: 02-23-2016 Dietary management education, guidance, and counseling Negrita Garsia Start: 02-23-2016 End: 02-23-2016 NATALIE Joe PA-C Work Phone: Start: 02-23-2016 End: 02-23-2016 Follow Up Appt 6 months Chelsea kulkarni PA-C Work Phone: Start: 02-23-2016 End: 02-23-2016 Follow Up Appt Other Chelsea brandt PA-C Work Phone: Start: 01-27-2016 End: 08-26-2016 *Hepatic Function Panel Delon Scanlon Start: 01-27-2016 End: 08-26-2016 Lipid 1996 panel - Serum or Plasma Gurjit Clifton MD Start: 01-27-2016 End: 08-26-2016 *Hepatic Function Panel Delon Scanlon Start: 01-27-2016 End: 08-26-2016 Lipid panel [AGGREGATE] Delon Scanlon Start: 12-30-2015 End: 08-26-2016 CBC W Auto Differential panel - Blood Gurjit Clifton MD Start: 12-30-2015 End: 02-17-2016 Follow Up Appt 3 months Delon Scanlon Start: 12-30-2015 End: 02-17-2016 ZOILA Clifton MD Start: 12-30-2015 End: 08-26-2016 CBC W Auto Differential panel - Blood Gurjit Clifton MD Start: 12-30-2015 End: 02-17-2016 Follow Up Appt 3 months Delon Scanlon Start: 12-30-2015 End: 02-17-2016 ZOILA Clifton MD Start: 12-01-2015 End: 12-01-2015 Follow Up Appt Other Chelsea brandt PA-C Work Phone: Start: 12-01-2015 End: 12-01-2015 Follow Up Appt Other Chelsea brandt PA-C Work Phone: Start: 11-12-2015 End: 02-17-2016 *Hepatic Function Panel Delon Scanlon Start: 11-12-2015 End: 11-12-2015 Follow Up Appt 3 months Delon Scanlon Start: 11-12-2015 End: 02-17-2016 Lipid 1996 panel - Serum or Plasma Gurjit Clifton MD Start: 11-12-2015 End: 11-12-2015 MMDelon Clifton MD Start: 11-12-2015 End: 11-13-2015 Referral to alumni coordinator Gurjit Clifton MD Start: 11-12-2015 End: 02-17-2016 *Hepatic Function Panel Delon Scanlon Start: 11-12-2015 End: 11-12-2015 Follow Up Appt 3 months Delon Scanlon Start: 11-12-2015 End: 02-17-2016 Lipid panel [AGGREGATE] Delon Scanlon Start: 11-12-2015 End: 11-12-2015 MMM Gurjit Clifton MD Start: 11-12-2015 End: 11-13-2015 Referral to alumni coordinator Gurjit Clifton MD Plan of Treatment Date Care Activity Detail Author Start: 06-27-2017 End: 06-27-2017 Appointment Appointment [facility] Work Phone: Start: 06-13-2017 End: 06-13-2017 Follow up Appt 1x/week Follow up Appt 1x/week [facility] Work Phone: Start: 06-13-2017 End: 06-13-2017 Appointment Appointment [facility] Work Phone: Start: 05-30-2017 End: 05-30-2017 Follow up Appt 1x/week Follow up Appt 1x/week [facility] Work Phone: Start: 05-30-2017 End: 05-30-2017 Appointment Appointment [facility] Work Phone: Start: 05-16-2017 End: 05-16-2017 Appointment Appointment [facility] Work Phone: Start: 05-16-2017 End: 05-16-2017 Follow up Appt 1x/week Follow up Appt 1x/week [facility] Work Phone: Start: 04-26-2017 End: 04-26-2017 Follow up Appt 1x/week Follow up Appt 1x/week [facility] Work Phone: Start: 04-26-2017 End: 04-26-2017 Appointment Appointment [facility] Work Phone: Start: 04-19-2017 End: 04-19-2017 Follow up Appt 1x/week Follow up Appt 1x/week [facility] Work Phone: Start: 04-19-2017 End: 04-19-2017 Appointment Appointment [facility] Work Phone: Start: 04-19-2017 End: 04-19-2017 Follow up Appt 1x/week Follow up Appt 1x/week [facility] Work Phone: Start: 04-14-2017 End: 04-14-2017 Appointment Appointment [facility] Work Phone: Start: 04-14-2017 End: 04-14-2017 Follow up Appt 1x/week Follow up Appt 1x/week [facility] Work Phone: Start: 04-14-2017 End: 04-14-2017 Follow up Appt 1x/week Follow up Appt 1x/week [facility] Work Phone: Start: 04-12-2017 End: 04-12-2017 Appointment Appointment [facility] Work Phone: Start: 04-12-2017 End: 04-13-2017 Follow up Appt 3x/week Follow up Appt 3x/week [facility] Work Phone: Start: 04-11-2017 End: 04-11-2017 Appointment Appointment [facility] Work Phone: Start: 04-11-2017 End: 04-13-2017 Follow up Appt 3x/week Follow up Appt 3x/week [facility] Work Phone: Start: 04-11-2017 End: 04-11-2017 Follow up Appt 3x/week Follow up Appt 3x/week [facility] Work Phone: Start: 04-07-2017 End: 04-07-2017 Appointment Appointment [facility] Work Phone: Start: 12-07-2016 End: 09-09-2016 *Hepatic Function Panel *Hepatic Function Panel [facility] Work Phone: Start: 12-07-2016 End: 09-09-2016 Lipid panel [AGGREGATE] *Lipid Profile CC PCP [facility] Work Phone: Start: 12-07-2016 End: 09-09-2016 *Hepatic Function Panel *Hepatic Function Panel [facility] Work Phone: Start: 12-07-2016 End: 09-09-2016 Lipid panel [AGGREGATE] *Lipid Profile CC PCP [facility] Work Phone: Start: 08-26-2016 End: 08-31-2016 *Hepatic Function Panel *Hepatic Function Panel [facility] Work Phone: Start: 08-26-2016 End: 08-26-2016 Follow Up Appt 6 months Follow Up Appt 6 months [facility] Work Phone: Start: 08-26-2016 End: 08-31-2016 Lipid panel [AGGREGATE] *Lipid Profile CC PCP [facility] Work Phone: Start: 08-26-2016 End: 08-26-2016 MMM MMM [facility] Work Phone: Start: 08-26-2016 End: 08-31-2016 *Hepatic Function Panel *Hepatic Function Panel [facility] Work Phone: Start: 08-26-2016 End: 08-26-2016 Follow Up Appt 6 months Follow Up Appt 6 months [facility] Work Phone: Start: 08-26-2016 End: 08-31-2016 Lipid panel [AGGREGATE] *Lipid Profile CC PCP [facility] Work Phone: Start: 08-26-2016 End: 08-26-2016 MMM MMM [facility] Work Phone: Start: 02-23-2016 End: 02-23-2016 EMERY GRINDER EMERY GRINDER [facility] Work Phone: Start: 02-23-2016 End: 02-23-2016 Follow Up Appt 6 months Follow Up Appt 6 months [facility] Work Phone: Start: 02-23-2016 End: 02-23-2016 Follow Up Appt Other Follow Up Appt Other [facility] Work Phone: Start: 02-23-2016 End: 02-23-2016 EMERY GRINDER EMERY GRINDER [facility] Work Phone: Start: 02-23-2016 End: 02-23-2016 Follow Up Appt 6 months Follow Up Appt 6 months [facility] Work Phone: Start: 02-23-2016 End: 02-23-2016 Follow Up Appt Other Follow Up Appt Other [facility] Work Phone: Start: 01-27-2016 End: 12-30-2015 *Hepatic Function Panel *Hepatic Function Panel [facility] Work Phone: Start: 01-27-2016 End: 12-30-2015 *Hepatic Function Panel *Hepatic Function Panel [facility] Work Phone: Start: 01-26-2016 End: 12-30-2015 Lipid panel [AGGREGATE] *Lipid Profile CC PCP [facility] Work Phone: Start: 01-26-2016 End: 12-30-2015 Lipid panel [AGGREGATE] *Lipid Profile CC PCP [facility] Work Phone: Start: 12-30-2015 End: 08-26-2016 CBC W Auto Differential panel - Blood *CBC without Diff [facility] Work Phone: Start: 12-30-2015 End: 02-17-2016 Follow Up Appt 3 months Follow Up Appt 3 months [facility] Work Phone: Start: 12-30-2015 End: 02-17-2016 MMM MMM [facility] Work Phone: Start: 12-30-2015 End: 08-26-2016 CBC W Auto Differential panel - Blood *CBC without Diff [facility] Work Phone: Start: 12-30-2015 End: 02-17-2016 Follow Up Appt 3 months Follow Up Appt 3 months [facility] Work Phone: Start: 12-30-2015 End: 02-17-2016 MMM MMM [facility] Work Phone: Start: 12-01-2015 End: 12-01-2015 Follow Up Appt Other Follow Up Appt Other [facility] Work Phone: Start: 12-01-2015 End: 12-01-2015 Follow Up Appt Other Follow Up Appt Other [facility] Work Phone: Start: 11-12-2015 End: 02-17-2016 *Hepatic Function Panel *Hepatic Function Panel [facility] Work Phone: Start: 11-12-2015 End: 02-17-2016 Cardiac Rehab Cardiac Rehab [facility] Work Phone: Start: 11-12-2015 End: 11-12-2015 Follow Up Appt 3 months Follow Up Appt 3 months [facility] Work Phone: Start: 11-12-2015 End: 02-17-2016 Lipid panel [AGGREGATE] *Lipid Profile CC PCP [facility] Work Phone: Start: 11-12-2015 End: 11-12-2015 MM MM [facility] Work Phone: Start: 11-12-2015 End: 02-17-2016 *Hepatic Function Panel *Hepatic Function Panel [facility] Work Phone: Start: 11-12-2015 End: 02-17-2016 Cardiac Rehab Cardiac Rehab [facility] Work Phone: Start: 11-12-2015 End: 11-12-2015 Follow Up Appt 3 months Follow Up Appt 3 months [facility] Work Phone: Start: 11-12-2015 End: 02-17-2016 Lipid panel [AGGREGATE] [facility] Start: 11-12-2015 End: 11-12-2015 MMM MMM [facility] Work Phone: Summary Purpose Family History No Family History Records Found Advance Directives No Advanced Directives Records Found Additional Source Comments INFORMATION SOURCE (unrecogn ized section and content) FOR RECORDS PERTAINING TO PATIENTS WHO ARE OR HAVE BEEN ENROLLED IN A CHEMICAL DEPENDENCY/SUBSTANCEABUSE PROGRAM, SOME INFORMATION MAY BE OMITTED. This clinical summary was aggregated from multiple sources. Caution should be exercised in using it in the provision of clinical care. This summary normalizes information from multiple sources, and as a consequence, information in this document may materially change the coding, format and clinical context of patient data. In addition, data may be omitted in some cases. CLINICAL DECISIONS SHOULD BE BASED ON THE PRIMARY CLINICAL RECORDS. [facility]. provides no warranty or guarantee of the accuracy or completeness of information in this document.
== END | disposition home or self-care (01) ==
LOC: CT 14:00
PROVIDERS: PCP Family Medicine; Referring Provider Family Medicine; Visit Provider Family Medicine
DX: Z12.2 Encounter for screening for malignant neoplasm of respiratory organs (principal); F17.210 Nicotine dependence, cigarettes, uncomplicated
CPT/HCPCS: 71271

== ENCOUNTER → 2023-08-23 | Outpatient (CLI) | payer MEDICARE, OTHER, SELFPAY ==
--- NOTE | 2023-08-23 13:06 | BD_ITS ---
STUDY: DUAL ENERGY X-RAY ABSORPTIOMETRY / DXA REASON FOR EXAM: Female, 67 years old. M81.0 TECHNIQUE: Bone Mineral Density (BMD) measurements of lumbar spine and bilateral hips were obtained. COMPARISON: None. FINDINGS: Lumbar Spine (L1-L4): g/cm2 (1.154) / T-score (1.0) / Z-score (3.0) Findings are suggestive of normal bone density with a low fracture risk. Left Femur Total: g/cm2 (0.911) / T-score (-0.3) / Z-score (1.2) Left Femoral Neck: g/cm2 (0.609) / T-score (-2.2) / Z-score (-0.4) Right Femur Total: g/cm2 (0.896) / T-score (-0.4) / Z-score (1.1) Right Femoral Neck: g/cm2 (0.63) / T-score (-2.0) / Z-score (-0.2) BD/Dexa Bone Density Study IMPRESSION: The patient is considered osteopenic as outlined below according to World [employer] Organization (WHO) criteria with a high fracture risk. Reference Information: The T-score is the number of standard deviations above or below the standard which is normal for young adults at their peak bone mineral density. The World Health Organization (WHO) interprets the T-scores as follows: Above -1 Normal bone density Between -1 and -2.5 Osteopenia Equal to / or below -2.5 Osteoporosis As a practical clinical guideline, osteopenia may be graded as follows: Mild -1 through -1.5 Moderate -1.6 through -2.0 Severe -2.1 through -2.4 The Z-score is the number of standard deviations above or below age-matched controls. A Z-score of less than -1.5 would be considered abnormal. References: 1. NIH Osteoporosis and Related Bone Diseases www osteo.org 2. International Society for Clinical Densitometry www iscd.org 3. National Osteoporosis Foundation www nof.org Electronically Signed: Gordon Syed MD at 14:56 EST ,
== END | disposition home or self-care (01) ==
LOC: OPBD 12:55
PROVIDERS: PCP Family Medicine; Referring Provider Family Medicine; Visit Provider Family Medicine
DX: M81.0 Age-related osteoporosis without current pathological fracture (principal)
CPT/HCPCS: 77080

== ENCOUNTER 2023-09-26 13:51 | Emergency (ER) | payer MEDICARE, OTHER, SELFPAY ==
[2023-09-26 13:52] VITALS: BP 138/85; PULSE 92; RESP 20; TEMP 35.1; O2SAT 98; BMI 31.0
--- NOTE | 2023-09-26 13:55 | EKG12_ITS ---
Test Reason : CP Blood Pressure : / mmHG Vent. Rate : 083 BPM Atrial Rate : 083 BPM P-R Int : 140 ms QRS Dur : 086 ms QT Int : 374 ms P-R-T Axes : 042 058 029 degrees QTc Int : 439 ms Normal sinus rhythm Possible Left atrial enlargement Nonspecific ST and T wave abnormality Abnormal ECG Confirmed by Vega Linder ([id number]), general expeditor RAVIN IGNACIO ([id number]) on 09/28/2023 9:31:54 AM Referred By: Confirmed By:Vega Linder
[2023-09-26 14:37] LABS: Absolute Lymphocyte Count 2.93 X10^3/uL (0.83-4.51); Absolute Neutrophil Count 5.4 X10^3/uL (2.0-7.7); Basophil# 0.05 X10^3/uL; Basophil% 0.5 % (0-1); Eosinophil# 0.23 X10^3/uL; Eosinophils% 2.5 % (0-5); Hematocrit 44.4 % (37-47); Lymphocyte # 2.93 X10^3/ul (0.83-4.51); Lymphocyte % 31.8 % (19-41); Mean Corp Hgb Conc 33.8 g/dL (32-36); Mean Corpuscular Hgb 29.7 pg (27.0-32.0); Mean Corpuscular Volume 87.9 fL (81-99); Mean Platelet Vol. 9.4 fl (6.2-12.0); Monocyte# 0.64 X10^3/uL; Monocyte% 6.9 % (0-10); NRBC Flagged by Analyzer 0 % (0-5); Neutrophil # 5.35 X10^3/uL (2.7-7.7); Neutrophil % 58.1 % (47-70); Platelet Count 345 K/mm3 (150-450); RBC Distribution Width CV 14.3 % (11.6-14.6); Red Blood Count 5.05 M/mm3 (4.2-5.4); White Blood Count 9.2 K/mm3 (4.4-11.0)
[2023-09-26 14:49] VITALS: BP 120/66; PULSE 85; RESP 18; O2SAT 91
[2023-09-26 14:52] LABS: Anion Gap 2 (5-15); BUN 20 mg/dL (7-18); BUN/Creat Ratio 20.4 RATIO (10-20); Calcium,Total 8.9 mg/dL (8.5-10.1); Chloride 115 mmol/L (98-107); Creatinine, Serum 0.98 mg/dL (0.55-1.02); EST Glomerular Filtration Rate 60 mL/min (>60); Est Glom Filt Rate - Afr Amer 72 mL/min (>60); Estimated Creatinine Clearance 61.15 ml/min; Glucose 144 mg/dL (74-106); Sodium Level 141 mmol/L (136-145); Troponin-I HS (w/2H Reflex) 33 pg/mL (3.0-54.0)
--- NOTE | 2023-09-26 15:07 | EX.ED.DYSGE1 ---
HPI <AYDEE Andrews - Last Filed: 09/26/23 19:04> History of Present Illness Chief Complaint: Chest Pain Narrative Narrative: Patient presenting today due to posterior neck pain and left-sided chest pressure that started this afternoon. Her chest symptoms were nonexertional. She reports that she put a cool rag on the back of her neck and this seemed to help, the pressure in her chest did go away by the time she arrived here in the ED. She denies any fevers, chills, injury to her neck, and shortness of breath. She does have a history of PE, no longer on blood thinners, no recent surgery/procedures/travel/immobilization. She does have a history of CAD with CABG, hyperlipidemia, and tobacco use. 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 MRSA infection Obesity (BMI 30.0-34.9) Other intervertebral disc degeneration, lumbar region Other intervertebral disc displacement, lumbar region Pulmonary embolism Screening for intestinal cancer Segmental and somatic dysfunction of cervical region Segmental and somatic dysfunction of thoracic region Smoker Tobacco abuse Ventral incisional hernia without obstruction or gangrene Wears glasses Home Medications atorvastatin 40 mg tablet 40 mg PO QHS 11/19/15 [History Last Taken 11/19/15 22:00] losartan 50 mg tablet 50 mg PO DAILY 12/15/18 [History Last Taken 03/25/21 05:30] hydrocodone-acetaminophen 5-325mg 5mg-325mg 1 tab PO Q6H PRN PRN Pain 3 days #10 TABLETS 02/21/23 [Rx Last Taken Unknown] sulfamethoxazole 800 mg-trimethoprim 160 mg tablet (Bactrim DS) 1 tab PO BID 10 days #20 tabs 02/21/23 [Rx Last Taken Unknown] Allergy/AdvReac Type Severity Reaction Status Date / Time Corticosteroids AdvReac Other Verified 02/21/23 08:29 (Glucocorticoids) [steroids] Family History Mother Hypertension Heart disease COPD (chronic obstructive pulmonary disease) CAD (coronary artery disease) Surgical History History of bladder suspension procedure History of incisional hernia repair (~03/2021) Hx of appendectomy (~2006) Hx of cholecystectomy (~1996) Hx of colonoscopy (~2018) Hx of heart bypass surgery (~2015) Hx of hysterectomy Hx of tonsillectomy Hx of tubal ligation Social History Smoking Status: Current every day smoker tobacco type: cigarettes alcohol intake: never substance use type: does not use caffeine: Yes what type of physical activity do you participate in: none ROS <AYDEE Andrews - Last Filed: 09/26/23 19:04> ROS ED Constitutional Constitutional ED: Denies chills or fever(s) Eyes Eyes: Denies change in vision Cardiovascular Cardiovascular: Reports other Details: chest pressure ; Denies palpitations Respiratory/Chest Respiratory/Chest: Denies cough or dyspnea Gastrointestinal Gastrointestinal: Denies abdominal pain, nausea or vomiting Musculoskeletal Musculoskeletal: Reports neck pain Integumentary Denies rash Neurologic Neurologic: Denies paresthesias or weakness EXAM <AYDEE Andrews - Last Filed: 09/26/23 19:04> Physical Exam Const Vital Signs: 09/26/23 13:52 09/26/23 14:49 09/26/23 14:49 Temperature 95.2 F L Temperature Source Temporal Pulse Rate 92 85 Respiratory Rate 20 H 18 Respiratory Effort Blood Pressure 138/85 H 120/66 Blood Pressure Mean 102 84 Pulse Ox 98 91 91 Oxygen Delivery Method Room Air Room Air Room Air Oxygen Flow Rate (L/min) 09/26/23 14:55 09/26/23 16:41 09/26/23 17:47 Temperature 97.9 F Temperature Source Pulse Rate 71 Respiratory Rate 16 Respiratory Effort Normal Non-Labored Blood Pressure 106/84 H Blood Pressure Mean 91 Pulse Ox 94 94 Oxygen Delivery Method Nasal Cannula Oxygen Flow Rate (L/min) 2 Positive well nourished, well developed and no apparent distress General Appearance ED: well developed HEENT Reports normocephalic and head/scalp atraumatic Mouth ED: Yes moist mucous membranes normal Eyes PERRL and EOMs intact bilaterally Neck full ROM and supple Neck Narrative: No midline cervical tenderness. No meningeal signs. Chest Wall inspection of chest normal and palpation of chest normal Resp normal respiratory effort Resp Narrative: Rhonchi left lower lung Cardio regular rate and regular rhythm GI soft to palpation, non-tender, non-distended and no masses Back/Spine normal ROM and normal to inspection Extremity normal to inspection and full ROM Neuro oriented x3, CN's II-XII intact bilaterally, moves all extremities, no focal motor deficits and no sensory deficits noted Sensorium / Orientation: awake and alert Psych mental status grossly normal and thought process normal Skin no rashes or lesions noted and no wounds <Dr. Jose Guadalupe Mckay DO - Last Filed: 09/26/23 23:37> Physical Exam Const Vital Signs: 09/26/23 13:52 09/26/23 14:49 09/26/23 14:49 Temperature 95.2 F L Temperature Source Temporal Pulse Rate 92 85 Respiratory Rate 20 H 18 Respiratory Effort Blood Pressure 138/85 H 120/66 Blood Pressure Mean 102 84 Pulse Ox 98 91 91 Oxygen Delivery Method Room Air Room Air Room Air Oxygen Flow Rate (L/min) 09/26/23 14:55 09/26/23 16:41 09/26/23 17:47 Temperature 97.9 F Temperature Source Pulse Rate 71 Respiratory Rate 16 Respiratory Effort Normal Non-Labored Blood Pressure 106/84 H Blood Pressure Mean 91 Pulse Ox 94 94 Oxygen Delivery Method Nasal Cannula Oxygen Flow Rate (L/min) 2 [facility] <AYDEE Andrews - Last Filed: 09/26/23 19:04> [facility] Narrative Medical decision making narrative: Patient presenting due to neck pain and left-sided chest pressure that started this afternoon. She is well-appearing and in no acute distress, vitals are unremarkable. Cardiac workup will be obtained as well as a CT scan of the neck. Given her history of blood clots, D-dimer obtained to rule out PE and is negative. Nonsignificant delta troponin. She was given Toradol for pain. On reexamination she reports improvement of her pain. Chest x-ray negative for any acute findings. Given patient's age and risk factors, she does have an elevated heart score, for this reason I did offer admission for further cardiac testing. 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 She is aware of the risks and is able to make this decision. I did recommend close outpatient follow-up and have given return instructions. She will be discharged home in stable condition. Lab Data Attestation: I reviewed the patient's lab results. Lab results narrative: BUN 20, troponin 33, D-dimer 0.35 Labs: Laboratory Results - last 24 hr 09/26/23 09/26/23 09/26/23 14:29 15:20 16:40 WBC 9.2 RBC 5.05 Hgb 15.0 Hct 44.4 MCV 87.9 MCH 29.7 MCHC 33.8 RDW Std Deviation 46.0 H RDW Coeff of Yaya 14.3 Plt Count 345 MPV 9.4 Immature Gran % (Auto) 0.200 Neut % (Auto) 58.1 Lymph % (Auto) 31.8 Throckmorton % (Auto) 6.9 Eos % (Auto) 2.5 Baso % (Auto) 0.5 Absolute Neuts (auto) 5.4 Absolute Lymphs (auto) 2.93 Nucleated RBC % 0 D-Dimer Quant (PE/DVT) 0.35 Sodium 141 Potassium 4.0 Chloride 115 H Carbon Dioxide 24.0 Anion Gap 2 L BUN 20 H Creatinine 0.98 Estim Creat Clear Calc 61.15 Est GFR (MDRD) Af Amer 72 Est GFR (MDRD) Non-Af 60 BUN/Creatinine Ratio 20.4 H Glucose 144 H Calcium 8.9 Troponin I High Sens 33 37 Radiography X-Ray: Read by ED Physician and Read by Radiologist Diagnostic Testing: Clinical Impression(s) from Imaging Studies Cervical Spine CT 09/26/23 15:13 IMPRESSION: No acute fracture or other significant bony pathology.. Moderate spondylosis. Electronically Signed: Reagan Castro MD at 16:30 EST , Chest X-Ray 09/26/23 16:10 IMPRESSION: No acute cardiopulmonary pathology status post CABG. Electronically Signed: Reagan Castro MD at 16:26 EST , EKG Initial EKG: Comments: 83 bpm, normal sinus rhythm, no ST elevation, reviewed and interpreted by attending ED physician <Dr. Jose Guadalupe Mckay, DO - Last Filed: 09/26/23 23:37> [facility] Narrative Medical decision making narrative: Patient presenting due to neck pain and left-sided chest pressure that started this afternoon. She is well-appearing and in no acute distress, vitals are unremarkable. Cardiac workup will be obtained as well as a CT scan of the neck. Given her history of blood clots, D-dimer obtained to rule out PE and is negative. Nonsignificant delta troponin. She was given Toradol for pain. On reexamination she reports improvement of her pain. Chest x-ray negative for any acute findings. Given patient's age and risk factors, she does have an elevated heart score, for this reason I did offer admission for further cardiac testing. 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 She is aware of the risks and is able to make this decision. I did recommend close outpatient follow-up and have given return instructions. She will be discharged home in stable condition. ED attending note: I evaluated the patient in conjunction with the EDU. I agree with his/her statements and above findings. I have personally performed a face to face assessment of the patient and have reviewed the EDU Note. I performed a substantive portion of the visit including all aspects of the following. I personally saw the patient performed chart review, physical exam, reviewed labs, imaging (if obtained), and formulated a treatment and management plan. This note was generated with [employer] dictation software. It may contain incorrect words, spelling, and punctuation that were not noted in review of the chart prior to signing. Lab Data Labs: Laboratory Results - last 24 hr 09/26/23 09/26/23 09/26/23 14:29 15:20 16:40 WBC 9.2 RBC 5.05 Hgb 15.0 Hct 44.4 MCV 87.9 MCH 29.7 MCHC 33.8 RDW Std Deviation 46.0 H RDW Coeff of Yaya 14.3 Plt Count 345 MPV 9.4 Immature Gran % (Auto) 0.200 Neut % (Auto) 58.1 Lymph % (Auto) 31.8 Throckmorton % (Auto) 6.9 Eos % (Auto) 2.5 Baso % (Auto) 0.5 Absolute Neuts (auto) 5.4 Absolute Lymphs (auto) 2.93 Nucleated RBC % 0 D-Dimer Quant (PE/DVT) 0.35 Sodium 141 Potassium 4.0 Chloride 115 H Carbon Dioxide 24.0 Anion Gap 2 L BUN 20 H Creatinine 0.98 Estim Creat Clear Calc 61.15 Est GFR (MDRD) Af Amer 72 Est GFR (MDRD) Non-Af 60 BUN/Creatinine Ratio 20.4 H Glucose 144 H Calcium 8.9 Troponin I High Sens 33 37 Radiography Diagnostic Testing: Clinical Impression(s) from Imaging Studies Cervical Spine CT 09/26/23 15:13 IMPRESSION: No acute fracture or other significant bony pathology.. Moderate spondylosis. Electronically Signed: Reagan Castro MD at 16:30 EST Reading Location ID and State: [address] [place] [address] Tel [phone], Service support , Chest X-Ray 09/26/23 16:10 IMPRESSION: No acute cardiopulmonary pathology status post CABG. Electronically Signed: Reagan Castro MD at 16:26 EST Reading Location ID and State: [facility] / [place] Tel [phone], Service support , Discharge Plan Triage Chief Complaint: Chest Pain ED Midlevel Provider: Luz Sepulveda ED Provider: Jose Guadalupe Mckay Dx/Rx/DC Orders Clinical Impression: Cervical spondylosis, Neck pain, Chest pain Instructions: ED Chest Pain, Uncertain Cause, ED Neck Pain Prescriptions: No Action losartan 50 mg tablet 50 mg PO DAILY atorvastatin 40 MG tablet 40 mg PO QHS Patient Comments: cholesterol sulfamethoxazole-trimethoprim [Bactrim DS] 800-160 mg tablet 1 tab PO BID 10 Days Qty: 20 0RF hydrocodone-acetaminophen 5-325 mg tablet 1 tab PO Q6H PRN PRN (Reason: Pain) 3 Days Qty: 10 0RF Primary Care Provider: Nura Herrera Referrals: Nura Herrera DO [Primary Care Provider] - 5-7 Days Activity Restrictions/Additional Instructions: Return for any worsening of your symptoms. Follow-up with your PCP. Disposition Disposition: Home, Self Care Discharge Date/Time: 09/26/23 17:49
--- NOTE | 2023-09-26 15:13 | CT_ITS ---
STUDY: CT CERVICAL SPINE WITHOUT CONTRAST REASON FOR EXAM: Female, 67 years old. neck pain RADIATION DOSAGE (If Supplied By Facility): CTDIvol = ( 16.52 ) mGy, DLP = ( 295.51 ) mGycm TECHNIQUE: High resolution transaxial imaging was performed without contrast material. Sagittal and coronal images were reconstructed. Individualized dose optimization techniques were used for this CT. COMPARISON: None FINDINGS: Normal craniovertebral junction. Normal anterior atlantoaxial articulation. Normal odontoid process. Straightening of normal lordotic curvature of uncertain significance.. Normal vertebral bodies and posterior osseous elements. C2-3: Normal endplates. Normal disc height and morphology. Normal central canal and intervertebral neuroforamina. C3-4: Mild endplate spurring. Normal disc height and morphology. Normal central canal and intervertebral neuroforamina. C4-5: Narrowed disc space and endplate spurring. Small left posterolateral osteophyte protrusion mildly narrowing the spinal canal. Severe bilateral neural foraminal stenosis secondary to bony hypertrophy C5-6: Narrowed disc space and endplate spurring with broad-based left paracentral/posterolateral disc/osteophyte protrusion narrowing the spinal canal and mildly compressing the cord on the left. Severe bilateral neural foraminal stenosis secondary to bony hypertrophy C6-7: Narrowed disc space and endplate spurring. Normal central canal. Severe left neural foraminal stenosis and moderate to severe narrowing on the right secondary to bony hypertrophy C7-T1: Normal endplates. Normal disc height and morphology. Normal central canal and intervertebral neuroforamina. Normal visualized soft tissue structures. CT/Spine Cervical without Contras IMPRESSION: No acute fracture or other significant bony pathology.. Moderate spondylosis. Electronically Signed: Reagan Castro MD at 16:30 EST ,
[2023-09-26] MEDS: Ketorolac 15 MG/ML Vial IV (15:33)
[2023-09-26 15:42] LABS: D-Dimer Quantitative (DVT/PE) 0.35 FEU/ug/m (0.27-0.49)
--- NOTE | 2023-09-26 16:10 | RAD_ITS ---
STUDY: X-RAY CHEST REASON FOR EXAM: Female, 67 years old. chest pain TECHNIQUE: PA and lateral COMPARISON: November 26, 2021 FINDINGS: The lungs are clear and expanded. There is no demonstrated pleural abnormality. Postop change status post median sternotomy and CABG Normal size heart. Normal mediastinum and hector. Normal visualized pulmonary arteries. Normal visualized aortic arch and descending thoracic aorta. Dorsal spine demonstrates mild scoliosis and degenerative change. Normal visualized ribs, clavicles, and shoulders. There is no demonstrated abnormality of the visualized soft tissue structures of the upper abdomen. RAD/Chest PA and Lateral IMPRESSION: No acute cardiopulmonary pathology status post CABG. Electronically Signed: Reagan Castro MD at 16:26 [facility] ,
[2023-09-26 16:32] LABS: Reflex Troponin-HS? (from REC) Y
[2023-09-26 16:41] VITALS: O2SAT 94
--- NOTE | 2023-09-26 16:42 | ED.RN ---
on walking into patient room patient spo2 at 86% with good pleth, patient placed on 2lpm and spo2 at 94%
[2023-09-26 17:28] LABS: Troponin-I HS 37 pg/mL (3.0-54.0)
[2023-09-26 17:47] VITALS: BP 106/84; PULSE 71; RESP 16; TEMP 36.6; O2SAT 93; O2SAT 94
--- OUTSIDE RECORDS SUMMARY | 2023-09-26 19:26 | XMS RPT_ITS | CCD ---
Author Name Unknown Address [address] [place] [address] Organization [facility] Care Team Providers Care Tariff Expert Name Role Phone Felisha Leonardo DC Unavailable Negrita Garsia Unavailable Unavailable Negrita Garsia Unavailable Unavailable Felisha Leonardo DC Unavailable Medications Completed/Discontinued Medications Medication Drug Class(es) Dates Sig (Normalized) Sig (Original) amiodarone hydrochloride 200 mg oral tablet (20 sources) Antiarrhythmic Start: 11-10-2015 End: 11-12-2015 take 1 tablet by mouth once daily AMIODARONE HCL 200 MG TABS One tablet by mouth daily AMIODARONE HCL [id number] Gurjit Clifton MD aspirin 81 mg oral tablet (18 sources) Platelet Aggregation Inhibitor, Nonsteroidal Anti-inflammatory Drug Start: 11-10-2015 take 1 tablet by mouth once daily ASPIRIN 81 MG TABS One tablet by mouth daily ASPIRIN [id number] Tania Echavarria RN Problems Active Problems Problem [...] disease (18 sources) Atherosclerotic heart disease of [place] coronary artery without angina pectoris; Translations: [Atherosclerotic heart disease of [place] coronary artery without angina pectoris] Onset: 11-05-2015 [...] (12 sources) Long-term drug therapy; Translations: [Other mcfp (current) drug therapy] Onset: 11-05-2015 11-05-2015 Past or Other Problems Problem Classification Problem Date Documented Da te Episodic/Chronic Coronary atherosclerosis and other heart disease (18 sources) Presence of aortocoronary bypass graft; Translations: [Presence of aortocoronary bypass graft] Onset: 11-05-2015 11-05-2015 Episodic Other aftercare (6 sources) Other mcfp (current) drug therapy; Translations: [Other meterman (current) drug therapy] Onset: 11-05-2015 11-05-2015 Episodic [...] 14:44-0400 BMI (Body Mass Index) 34.54 kg/m2 [facility] Work Phone: 04-07-2017 14:44-0400 Pulse (Heart Rate) 83 /min [facility] Work Phone: 04-07-2017 14:44-0400 Respiratory Rate 21 /min [facility] Work Phone: 04-07-2017 14:44-0400 Weight 97.07 kg [facility] Work Phone: 08-26-2016 10:04-0500 BMI (Body Mass Index) 32.6 kg/m2 [facility] Work Phone: 08-26-2016 10:04-0500 BP Diastolic 70 mm[Hg] [facility] Work Phone: 08-26-2016 10:04-0500 BP Systolic 122 mm[Hg] [facility] Work Phone: 08-26-2016 10:04-0500 BSA (Body Surface Area) 2.01 m2 [facility] Work Phone: 08-26-2016 10:04-0500 Pulse (Heart Rate) 88 /min [facility] Work Phone: 08-26-2016 10:04-0500 Respiratory Rate 20 /min [facility] Work Phone: 08-26-2016 10:04-0500 Weight 91.63 kg [facility] Work Phone: 03-02-2016 13:13-0400 Body Temperature 98.4 [degF] [facility]gr[facility] Work Phone: 11-12-2015 10:41-0400 Heart rate 63 /min [facility]gr[facility] Work Phone: 11-12-2015 10:18-0400 Height 167.64 cm [facility] Work Phone: 11-12-2015 10:18-0400 Pulse Oximetry 96 % Negrita [facility] Work Phone: Procedures Date Procedure Procedure [...] MD Start: 11-12-2015 End: 11-13-2015 Referral to shoes hand sewer Gurjit Clifton MD Start: 11-12-2015 End: 02-17-2016 *Hepatic Function Panel Delon Scanlon Start: 11-12-2015 End: 11-12-2015 Follow Up Appt 3 months Delon Scanlon Start: 11-12-2015 End: 02-17-2016 Lipid panel [AGGREGATE] Delon Scanlon Start: 11-12-2015 End: 11-12-2015 MMM Gurjit Clifton MD Start: 11-12-2015 End: 11-13-2015 Referral to shoes hand sewer Gurjit Clifton MD Plan of Treatment Date [...] [facility]rop[facility] Work Phone: Start: 02-23-2016 End: 02-23-2016 [employer] [facility] Work Phone: Start: 02-23-2016 End: 02-23-2016 Follow Up Appt 6 months Follow Up Appt 6 months [facility] Work Phone: Start: 02-23-2016 End: 02-23-2016 Follow Up Appt Other Follow Up Appt Other [facility] Work Phone: Start: 02-23-2016 End: 02-23-2016 [employer]PER[employer] SU[employer] [facility] Work Phone: Start: 02-23-2016 End: [...] Lipid panel [AGGREGATE] [facility]: Start: 11-12-2015 End: 11-12-2015 MMM MMM [facility] Work Phone: Summary Purpose [...] ON THE PRIMARY CLINICAL RECORDS. [facility] [employer] [facility]. provides no warranty or guarantee of the accuracy or completeness of information in this document.
== END 2023-09-26 17:49 | disposition home or self-care (01) ==
PROVIDERS: Emergency Provider Emergency Medicine; PCP Family Medicine; Visit Provider Emergency Medicine
DX: M47.812 Spondylosis without myelopathy or radiculopathy, cervical region (principal); R07.9 Chest pain, unspecified; I25.10 Atherosclerotic heart disease of native coronary artery without angina pectoris; F17.210 Nicotine dependence, cigarettes, uncomplicated; Z86.711 Personal history of pulmonary embolism; Z95.1 Presence of aortocoronary bypass graft
CPT/HCPCS: 71046; 72125; 80048; 84484; 85025; 85379; 93005; 96374; 99284; A4216

== ENCOUNTER → 2023-11-29 | Outpatient (CLI) | payer MEDICARE, OTHER, SELFPAY ==
--- NOTE | 2023-11-29 10:48 | CDU_ITS ---
Reason For Study: Hollenhorst plaque Rt. Velocities/BP Lt. Velocities/BP Prox CCA 56.4/17.3 cm/sec. Prox CCA 77.9/22.9 cm/sec. Mid CCA 63.6/17.3 cm/sec. Mid CCA 57.8/15.1 cm/sec. Dist CCA 59.3/19.4 cm/sec. Dist CCA 63.9/22.1 cm/sec. Prox ICA 86.3/28.6 cm/sec. Prox ICA 48.2/15.1 cm/sec. Mid ICA 87.6/26.2 cm/sec. Mid ICA 57.0/19.5 cm/sec. Dist ICA 69.1/23.7 cm/sec. Dist ICA 70.0/26.4 cm/sec. Rt. ICA/CCA = 1.4. Lt. ICA/CCA = 1.2. Prox ECA 124.7/20.6 cm/sec. Prox ECA 78.8/15.1 cm/sec. Rt. Vert. 31.9/8.7 cm/sec. Lt. Vert. 56.1/16.0 cm/sec. Right Extracranial There is intimal thickening but no significant atherosclerotic plaque noted in the right common carotid artery. There is heterogeneous, irregular atherosclerotic plaque noted in the right internal carotid artery. There is intimal thickening but no significant atherosclerotic plaque noted in the right external carotid artery. Antegrade flow is noted in the right vertebral artery. Left Extracranial There is intimal thickening but no significant atherosclerotic plaque noted in the left common carotid artery. There is heterogeneous, irregular atherosclerotic plaque noted in the left internal carotid artery. There is heterogeneous, irregular atherosclerotic plaque noted in the left external carotid artery. Antegrade flow is noted in the left vertebral artery. Procedure Carotid Duplex 91211. This is a Carotid Duplex examination using B-mode, color flow and specral Doppler. The exam was diagnostic. Exam performed in department. VL/Carotid Duplex Ultrasound Interpretation Summary Mild (<50%) stenosis right extracranial internal carotid. Mild (<50%) stenosis left extracranial internal carotid. Patent and antegrade vertebrals bilaterally. Ordering Physician: Jarocho To Referring Physician: Jarocho To Performed By: Iglesia Mosher RVT and Student
== END | disposition home or self-care (01) ==
LOC: CVS 10:44
PROVIDERS: PCP Family Medicine; Referring Provider Ophthalmology; Visit Provider Ophthalmology
DX: H34.211 Partial retinal artery occlusion, right eye (principal)
CPT/HCPCS: 93880

== ENCOUNTER → 2023-12-27 | Outpatient (CLI) | payer MEDICARE, OTHER, SELFPAY ==
--- NOTE | 2023-12-27 13:59 | ECHOD_ITS ---
Reason For Study: RETINAL ARTERY OCCLUSION Procedure This was a 2D Doppler, Color Flow transthoracic echocardiogram. Exam performed in department. Left Ventricle Normal LV size. Left ventricular systolic function is normal. The estimated ejection fraction is 60 %. Stage 1 diastolic dysfunction. No regional wall motion abnormalities noted. Right Ventricle Normal RV size. Normal systolic function. Atria Normal left atrium. Normal right atrium. Bubble contrast study negative for right to left interatrial shunt. Tricuspid Valve Normal tricuspid valve. Mild tricuspid valve insufficiency. Pulmonary artery systolic pressure is 25 mmHg. Aortic Valve Trisinus/trileaflet aortic valve. Pulmonic Valve Normal pulmonic valve. Great Vessels Normal aortic root. The pulmonary artery is normal size. Normal inferior vena cava. Pericardium/Pleural No pericardial effusion. Medication 22 gauge I.V. with prn adaptor inserted into right arm. Performed a rapid injection of agitated mix of 9 cc saline and 1cc air to assess for atrial septal defect. MMode/2D Measurements & Calculations LVIDd: 3.8 cm IVSd: 1.6 cm LVOT diam: 2.0 cm LVIDs: 2.4 cm LVPWd: 1.1 cm LVOT area: 3.2 cm2 RVDd: 3.1 cm FS: 37.6 % Ao root diam: 3.1 cm LAV(MOD-bp): 41.6 ml LVAd ap4: 18.3 cm2 LAV(MOD-bp) Indexed: 21.4 ml/m2 LVLd ap4: 7.0 cm LAV(MOD-sp2): 38.0 ml EDV(MOD-sp4): 41.5 ml LAV(MOD-sp4): 42.6 ml EDV(sp4-el): 41.0 ml LVAs ap4: 10.3 cm2 LVLs ap4: 5.9 cm ESV(MOD-sp4): 16.8 ml ESV(sp4-el): 15.2 ml EF(MOD-sp4): 59.5 % EF(sp4-el): 63.0 % LVAd ap2: 18.2 cm2 SV(MOD-sp4): 24.7 ml SV(MOD-sp2): 24.0 ml LVLd ap2: 6.9 cm EDV(MOD-sp2): 42.3 ml EDV(sp2-el): 41.0 ml LVAs ap2: 11.2 cm2 LVLs ap2: 5.9 cm ESV(MOD-sp2): 18.3 ml ESV(sp2-el): 18.1 ml EF(MOD-sp2): 56.6 % SV(sp4-el): 25.8 ml LA dimension(2D): 4.1 cm LA A4 area: 16.0 cm2 RA A4 area: 12.1 cm2 TAPSE: 1.2 cm Time Measurements MV dec time: 0.17 sec Doppler Measurements & Calculations MV E max cash: 71.9 cm/sec Lat Peak E' Cash: 11.5 cm/sec Med Peak E' Cash: 7.5 cm/sec MV A max cash: 94.4 cm/sec E/E' lat: 6.3 E/E' med: 9.6 MV E/A: 0.76 Ao V2 max: 194.1 cm/sec LV V1 max: 149.9 cm/sec MV dec slope: 425.5 cm/sec2 Ao max P.1 mmHg LV V1 max P.0 mmHg Ao V2 mean: 123.1 cm/sec LV V1 mean P.7 mmHg Ao mean P.2 mmHg LV V1 mean: 116.0 cm/sec Ao V2 VTI: 34.4 cm LV V1 VTI: 23.8 cm AV (velocity ratio): 0.69 BEVERLY(I,D): 2.2 cm2 BEVERLY(V,D): 2.5 cm2 SV(LVOT): 76.4 ml PA V2 max: 111.0 cm/sec PI end-d cash: 102.1 cm/sec TR max cash: 235.7 cm/sec TR max P.2 mmHg ECHO/Echo Complete Interpretation Summary Normal LV size. Left ventricular systolic function is normal. The estimated ejection fraction is 60 %. Stage 1 diastolic dysfunction. Bubble contrast study negative for right to left interatrial shunt. Ordering Physician: Jarocho To Referring Physician: Nura Herrera Performed By: Radha Rodriguez RDCS
== END | disposition home or self-care (01) ==
LOC: CVS 13:57
PROVIDERS: PCP Family Medicine; Referring Provider Ophthalmology; Visit Provider Ophthalmology
DX: H34.211 Partial retinal artery occlusion, right eye (principal); Z86.73 Personal history of transient ischemic attack (TIA), and cerebral infarction without residual deficits
CPT/HCPCS: 93306; A4216

== ENCOUNTER → 2024-07-10 | Outpatient (CLI) | payer MEDICARE, OTHER, SELFPAY ==
[2024-07-10 13:14] LABS: ALB/GLOB Ratio 1.1 RATIO (0.9-2.4); AST(SGOT) 30 U/L (15-37); Alanine Aminotransfer ALT/SGPT 61 U/L (13-56); Albumin, Serum 3.8 g/dL (3.2-5.0); Alkaline Phosphatase 79 U/L (45-117); Anion Gap 6 (5-15); BUN 13 mg/dL (7-18); BUN/Creat Ratio 15.5 RATIO (10-20); Chloride 110 mmol/L (98-107); Cholesterol 142 mg/dL (200); Creatinine, Serum 0.84 mg/dL (0.55-1.02); EST Glomerular Filtration Rate 71 mL/min (>60); Est Glom Filt Rate - Afr Amer 86 mL/min (>60); Globulin 3.5 g/dL (2.2-4.2); Glucose 107 mg/dL (74-106); High Density Lipoprotein 47 mg/dL; Potassium 4.3 mmol/L (3.5-5.1); Protein, Total 7.3 g/dL (6.4-8.2); Sodium Level 140 mmol/L (136-145); Triglycerides 297 mg/dL; Very Low Density Lipoprotein 59 mg/dL (5-40)
[2024-07-10 14:01] LABS: Hemoglobin A1c 5.9 % (3.8-5.6)
[2024-07-10 15:41] LABS: Microalbumin,Random Urine 23.2 mg/L (NO RANGE EST.); Microalbumin:Creatinine Ratio 13.8 mg/g CRE (<30 mg/g CRE)
[2024-07-12 00:46] LABS: Vitamin D,25 Hydroxy 37.7 ng/mL
== END | disposition home or self-care (01) ==
LOC: LAB.FUTURE 10:24 → BFHLAB 07-12 08:19
PROVIDERS: PCP Family Medicine; Referring Provider Family Medicine; Visit Provider Family Medicine
DX: I25.10 Atherosclerotic heart disease of native coronary artery without angina pectoris (principal); I10 Essential (primary) hypertension; M85.80 Other specified disorders of bone density and structure, unspecified site; R73.03 Prediabetes
CPT/HCPCS: 36415; 80053; 80061; 82043; 82306; 82570; 83036

== ENCOUNTER → 2024-07-13 | Outpatient (CLI) | payer MEDICARE, OTHER, SELFPAY ==
[2024-07-13 12:21] LABS: Absolute Lymphocyte Count 3.42 X10^3/uL (0.83-4.51); Absolute Neutrophil Count 4.6 X10^3/uL (2.0-7.7); Basophil# 0.07 X10^3/uL; Basophil% 0.8 % (0-1); Eosinophil# 0.22 X10^3/uL; Eosinophils% 2.4 % (0-5); Hematocrit 46.4 % (37-47); Hemoglobin 15.1 g/dL (12.0-15.0); Lymphocyte # 3.42 X10^3/ul (0.83-4.51); Mean Corp Hgb Conc 32.5 g/dL (32-36); Mean Corpuscular Hgb 28.8 pg (27.0-32.0); Mean Corpuscular Volume 88.5 fL (81-99); Mean Platelet Vol. 10.8 fl (6.2-12.0); Monocyte# 0.72 X10^3/uL; NRBC Flagged by Analyzer 0 % (0-5); Neutrophil # 4.56 X10^3/uL (2.7-7.7); Neutrophil % 50.6 % (47-70); Platelet Count 299 K/mm3 (150-450); RBC Distribution Width CV 14.6 % (11.6-14.6); RBC Distribution Width SD 46.8 fl (35.1-43.9); Red Blood Count 5.24 M/mm3 (4.2-5.4)
== END | disposition home or self-care (01) ==
LOC: BFHLAB 10:57
PROVIDERS: PCP Family Medicine; Visit Provider Family Medicine
DX: I25.10 Atherosclerotic heart disease of native coronary artery without angina pectoris (principal); I10 Essential (primary) hypertension; M85.80 Other specified disorders of bone density and structure, unspecified site; R73.03 Prediabetes
CPT/HCPCS: 85025

== ENCOUNTER → 2025-07-16 | Outpatient (CLI) | payer MEDICARE, OTHER, SELFPAY ==
[2025-07-16 12:29] LABS: Hematocrit 47.7 % (37-47); Hemoglobin 16.1 g/dL (12.0-15.0); Immature Granulocytes Count 0.030 X10^3/uL (0.0-0.0); Mean Corp Hgb Conc 33.8 g/dL (32-36); Mean Corpuscular Volume 89.0 fL (81-99); Mean Platelet Vol. 11.0 fl (6.2-12.0); NRBC Flagged by Analyzer 0 % (0-5); Platelet Count 242 K/mm3 (150-450); RBC Distribution Width CV 14.7 % (11.6-14.6); RBC Distribution Width SD 48.0 fl (35.1-43.9); Red Blood Count 5.36 M/mm3 (4.2-5.4); White Blood Count 8.3 K/mm3 (4.4-11.0)
[2025-07-16 12:57] LABS: AST(SGOT) 56 U/L (<=31); Alanine Aminotransfer ALT/SGPT 90 U/L (<=34); Albumin, Serum 4.3 g/dL (3.4-4.8); Alkaline Phosphatase 76 U/L (35-104); Anion Gap 13 (7-18); BUN 14 mg/dL (4-19); BUN/Creat Ratio 18.5 RATIO (10-20); Calcium,Total 9.2 mg/dL (7.6-11.0); Carbon Dioxide 23.0 mmol/L (20.0-29.0); Chloride 105 mmol/L (96-106); Cholesterol 149 mg/dL (<=200); Globulin 2.6 g/dL (2.2-4.2); Glucose 103 mg/dL (70-99); Low Density Lipoprotein Calc. 60 mg/dL; Potassium 4.2 mmol/L (3.5-5.1); Triglycerides 279 mg/dL; Very Low Density Lipoprotein 56 mg/dL (5-40); cholesterol:hdl ratio screen 3.29
== END | disposition home or self-care (01) ==
LOC: LAB.FUTURE 09:43 → BFHLAB 09:43
PROVIDERS: PCP Family Medicine; Visit Provider Family Medicine
DX: R73.03 Prediabetes (principal); I10 Essential (primary) hypertension; I25.10 Atherosclerotic heart disease of native coronary artery without angina pectoris
CPT/HCPCS: 36415; 80053; 80061; 83036; 85025